=== PATIENT | female | born 2000 | race Caucasian/White ===

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

== ENCOUNTER 2018-01-11 07:55 | Emergency (ER) | payer BC, OTHER ==
[2018-01-11 08:28] VITALS: BP 98/58
--- NOTE | 2018-01-11 10:22 | UC ---
UC General HPI - HPI Summary HPI Summary: 17 yo female c/o sore throat. Current episode started approx Wednesday (today is ). Completed a full course of amoxicillin on Wednesday, the day before symptoms recurred d/t strep throat. No rash. Subj fever. Mild GI discomfort, no diarrhea. Minimal cough. Reports that she had mononucleosis in 6th grade, but does not recall if blood tested or not. No urinary issues. + dm, takes metformin. BS this am 98mg/dl. - History of Current Complaint Chief Complaint: UCGeneralIllness Stated Complaint: ST, FEVER, WEAK Time Seen by Provider: 01/11/18 09:28 Hx Obtained From: Patient Hx Last Menstrual Period: irregular - 3 months ago Pain Intensity: 5 - Allergy/Home Medications Allergies/Adverse Reactions: Allergies Allergy/AdvReac Type Severity Reaction Status Date / Time No Known Allergies Allergy Verified 01/11/18 08:28 Home Medications: Home Medications QUEtiapine TAB* [SEROquel TAB*] 100 mg PO BEDTIME 01/11/18 [History Confirmed ] traZODone TAB* [Desyrel TAB*] 50 mg PO BEDTIME 01/11/18 [History Confirmed 01/11] PMH/Surg Hx/FS Hx/Imm Hx Previously Healthy: Yes - Surgical History Surgical History: None - Family History Known Family History: Negative: Blood Disorder - Social History Alcohol Use: Rare Substance Use Type: None Smoking Status (MU): Never Smoked Tobacco - Immunization History Most Recent Influenza Vaccination: 07/2013 Most Recent Pneumonia Vaccination: never Vaccination Up to Date: Yes Review of Systems Constitutional: Fever Skin: Negative Eyes: Negative ENT: Sore Throat Respiratory: Negative Cardiovascular: Negative Gastrointestinal: Negative Genitourinary: Negative - see hpi Motor: Negative Neurovascular: Negative Musculoskeletal: Negative Neurological: Negative Psychological: Negative Is Patient Immunocompromised?: No All Other Systems Reviewed And Are Negative: Yes Physical Exam Triage Information Reviewed: Yes Appearance: Well-Nourished - sitting up. conversing easily and appropriately. NAD. Vital Signs: Initial Vital Signs Temp 99.2 F 01/11/18 08:22 Pulse 110 01/11/18 08:22 Resp 20 01/11/18 08:22 BP 98/58 01/11/18 08:22 Pulse Ox 98 01/11/18 08:22 Vital Signs Reviewed: Yes Eye Exam: Normal ENT: Positive: Pharyngeal erythema - uvula midline. Airway patent., TM dull, Tonsillar exudate Neck: Positive: Supple, Nontender, Enlarged Nodes @ - mild adenopathy Respiratory Exam: Normal Respiratory: Positive: Chest non-tender, Lungs clear, Normal breath sounds, No respiratory distress, No accessory muscle use Cardiovascular Exam: Normal Cardiovascular: Positive: RRR, No Murmur, Pulses Normal, Brisk Capillary Refill Abdominal Exam: Other - soft + bs, nd. Mild tender no r/g L lat ant abd. Not tender under ribs right or left. No cvat. Musculoskeletal Exam: Normal Neurological Exam: Normal Psychological Exam: Normal - conversing easily and appropriately. Skin Exam: Normal - no visible or reported rash Course/Dx - Course Course Of Treatment: RST negative. D/w pt and family member coa / tx plan. Rx doxycycline, pending mono results. Work note. Blood tests ordered. Questions as posed answered to the best of my ability. - Differential Dx - Multi-Symptom Provider Diagnoses: Tonsillitis Discharge - Sign-Out/Discharge Documenting (check all that apply): Discharge - Discharge Plan Condition: Stable Disposition: HOME Prescriptions: DOXYcycline CAP(*) [DOXYcycline 100MG CAP(*)] 100 mg PO BID #20 cap Patient Education Materials: Tonsillitis (ED) Forms: *Work Release Referrals: Zoila Bell NP [Primary Care Provider] - Additional Instructions: Follow up with your primary care provider as per routine, recommend recheck in the next 1-2 weeks. Drink plenty of fluids. Rest. Seek medical attention for worse or new problems in the meantime. Tests today: Monospot EBV antibodies CBC CMP - Billing Disposition and Condition Condition: STABLE Disposition: HOME
[2018-01-11 20:02] LABS: Hematocrit 38 % (35-47); Hemoglobin 12.9 g/dl (12.0-16.0); Mean Corpuscular HGB Conc 34 g/dl (31-36); Mean Corpuscular Hemoglobin 29 pg (27-31); Mean Corpuscular Volume 85 fL (80-97); Mean Platelet Volume 8.8 um3 (7.4-10.4); Platelet Count 221 10^3/ul (150-450); Red Blood Count 4.46 10^6/ul (4.0-5.4); Red Cell Distribution Width 14 % (10.5-15); White Blood Count 16.9 10^3/ul (3.5-10.8)
[2018-01-11 20:41] LABS: EGFR Non-African American 139.5 (>60)
[2018-01-11 20:57] LABS: ABS Basophils 0.1 10^3/ul (0-0.2); ABS Eosinophils 0.1 10^3/ul (0-0.6); ABS Lymphocytes 1.4 10^3/ul (1.0-4.8); ABS Neutrophils 14.4 10^3/ul (1.5-7.7); ABS Nucleated RBC 0 10^3/ul; Eosinophil % 0.3 % (0-6); Lymphocyte % 8.1 % (25-47); Nucleated Red Blood Cells % 0
--- NOTE | 2018-01-14 07:14 | UC ---
- Progress Note Progress Note: 2+ normal floral throat Nelson: suggest previous +IgG/Ag neg IgM no change Myrna 01/14/2018 Discharge - Sign-Out/Discharge Documenting (check all that apply): Discharge - Discharge Plan Condition: Stable Disposition: HOME Prescriptions: DOXYcycline CAP(*) [DOXYcycline 100MG CAP(*)] 100 mg PO BID #20 cap Patient Education Materials: Tonsillitis (ED) Forms: *Work Release Referrals: Zoila Bell NP [Primary Care Provider] - Additional Instructions: Follow up with your primary care provider as per routine, recommend recheck in the next 1-2 weeks. Drink plenty of fluids. Rest. Seek medical attention for worse or new problems in the meantime. Tests today: Monospot EBV antibodies CBC CMP - Billing Disposition and Condition Condition: STABLE Disposition: HOME
== END 2018-01-11 10:26 | disposition home or self-care (01) ==
LOC: UCCORT 07:55
DX: J03.90 Acute tonsillitis, unspecified (principal); R19.8 Other specified symptoms and signs involving the digestive system and abdomen; E11.9 Type 2 diabetes mellitus without complications; N92.6 Irregular menstruation, unspecified; Z79.84 Long term (current) use of oral hypoglycemic drugs; Z86.19 Personal history of other infectious and parasitic diseases
CPT/HCPCS: 36415; 80053; 85025; 86308; 86664; 86665; 87070; 87651; 99212; G0463

== ENCOUNTER 2018-05-01 23:21 | Inpatient (IN) | payer BC ==
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
[2018-05-02 00:33] LABS: ABS Basophils 0 10^3/ul (0-0.2); ABS Eosinophils 0.2 10^3/ul (0-0.6); ABS Lymphocytes 3.3 10^3/ul (1.0-4.8); ABS Monocytes 0.6 10^3/ul (0-0.8); ABS Neutrophils 4.3 10^3/ul (1.5-7.7); ABS Nucleated RBC 0 10^3/ul; Hematocrit 39 % (35-47); Hemoglobin 13.3 g/dl (12.0-16.0); Lymphocyte % 39.1 % (25-47); Mean Corpuscular HGB Conc 34 g/dl (31-36); Mean Corpuscular Hemoglobin 30 pg (27-31); Mean Corpuscular Volume 86 fL (80-97); Mean Platelet Volume 8.5 um3 (7.4-10.4); Nucleated Red Blood Cells % 0.1; Platelet Count 208 10^3/ul (150-450); Red Blood Count 4.52 10^6/ul (4.00-5.40); Red Cell Distribution Width 14 % (10.5-15); White Blood Count 8.4 10^3/ul (3.5-10.8)
[2018-05-02 00:49] LABS: Urine Appearance Cloudy; Urine Blood Negative (Negative); Urine Color Yellow; Urine Ketones Negative (Negative); Urine Protein 1+(30 mg/dL) (Negative); Urine Red Blood Cell 3+(>10/hpf) (Absent); Urine Specific Gravity 1.029 (1.010-1.030); Urine Urobilinogen Positive (Negative); Urine White Blood Cell Trace(0-5/hpf) (Absent)
[2018-05-02 00:51] LABS: EGFR Non-African American 127.5 (>60)
--- NOTE | 2018-05-02 07:23 | UC ---
- Progress Note Progress Note: The patient was signed out from Dr. Morgan to Dr. Rivas, awaiting MHE. MHE was done at [address] Guerrero. This patient will be admitted by Dr. Guerrero with a dx of depression and suicidal ideation. Patient and mother understand and agree with this plan. - Consult/PCP Time Called: 01:15 Course/Dx - Diagnoses Provider Diagnoses: Depression, Suicidal ideation Discharge - Sign-Out/Discharge Documenting (check all that apply): Patient Departure - Discharge Plan Condition: Fair Disposition: ADMITTED TO [facility] - Billing Disposition and Condition Condition: FAIR Disposition: Admitted to [facility]
[2018-05-02] MEDS ORDERED: Levothyroxine TAB* 25 MCG TAB PO ONE (12:01)
[2018-05-02] MEDS ORDERED: metFORMIN* 500 MG TAB PO ONE (12:01)
[2018-05-02] MEDS ORDERED: Al Hydrox/Mg Hydrox/Simet LIQ* 30 ML UDC PO PRN (12:30)
[2018-05-02] MEDS ORDERED: hydrOXYzine HCL TAB* 50 MG PO PRN (12:32)
[2018-05-02] MEDS ORDERED: Ondansetron ODT TAB* 4 MG PO PRN (12:32)
[2018-05-02] MEDS ORDERED: Ibuprofen TAB* 600 MG PO PRN (12:32)
[2018-05-02] MEDS: Levothyroxine TAB* 50 MCG TAB PO SCH (16:44)
[2018-05-02] MEDS: metFORMIN* 1,000 MG TAB PO SCH (17:57)
[2018-05-02] MEDS ORDERED: Sertraline* 100 MG TAB PO SCH (21:00)
[2018-05-02] MEDS ORDERED: QUEtiapine TAB* 100 MG PO SCH (21:00)
[2018-05-02] MEDS: Acetaminophen TAB* 325 MG PO PRN (21:43)
[2018-05-02] MEDS: PTO: Liraglutide (NF) 18 MG/3 ML SUBCUT SCH (22:23)
[2018-05-03] MEDS: metFORMIN* 1,000 MG TAB PO SCH ×2 (08:32→17:17)
[2018-05-03] MEDS: Levothyroxine TAB* 75 MCG TAB SCH (08:32)
[2018-05-03] MEDS ORDERED: LEVONORGESTREL PO ONE (12:01)
[2018-05-03] MEDS ORDERED: ETHINYL ESTRADIOL PO ONE (12:01)
[2018-05-03] MEDS: LEVONORGESTREL ETH ESTRAD PO SCH (14:56)
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
[2018-05-03] MEDS: QUEtiapine XR TAB* 200 MG PO SCH (17:17)
[2018-05-03] MEDS: PTO: Liraglutide (NF) 18 MG/3 ML SUBCUT SCH (20:57)
[2018-05-03] MEDS: Sertraline* 100 MG TAB PO SCH (21:01)
[2018-05-04] MEDS: Levothyroxine TAB* 50 MCG TAB PO SCH (09:13)
[2018-05-04] MEDS: metFORMIN* 1,000 MG TAB PO SCH ×2 (09:14→17:33)
[2018-05-04] MEDS: LEVONORGESTREL ETH ESTRAD PO SCH (09:14)
[2018-05-04] MEDS: Acetaminophen TAB* 325 MG PO PRN (11:10)
--- NOTE | 2018-05-04 12:05 | PN ---
Subjective - Subjective Date of Service: 05/04/18 Service Type: [id number] Hosp care 15 min low complexity Subjective: Patient was seen by self, discussed with treatment team, chart was reviewed. Patient has been compliant with her medications, no reported side effects. Patient reports improvement in her sleep last night, and racing worries, but continued to be depressed, low in energy, low self esteem, ambivalent about improvement and feeling better as she is afraid to lose that feeling. Patient mentioned that she has had noticed with psychoeducation on the unit that she has some traits of borderline features and wants to work on her coping strategies to help regulate her cognition and emotions better. Patient sleeping has been better. Patient eating has been fair. Patient has been cooperative with staff. Patient behavior has been in control. Patient mood was less anxious but continued to be dysphoric and reports some improvement in racing worries. Patient has been reporting no suicidal or homicidal ideation. No psychotic symptoms of delusions or hallucinations. Objective - Appearance Appearance: Healthy Appearing Dysmorphic Features: No Hygiene: Normal Grooming: Fairly Well Kept - Behavior Psychomotor Activities: Abnormal-Decreased - some improvement - Attitude and Relatedness Attitude and Relatedness: Cooperative Eye Contact: Fair - Speech Quality: Unpressured Latencies: Normal Quantity: Terse - Mood Patient's Decription of Mood: "Okay" - Affect Observed Affect: Depressed Affect Consistent with: Dysphoria - Thought Process Patient's Thought Process: Goal Directed Thought Content: No Passive Wish, No Suicidal Planning, No Homicidal Ideation, No Paranoid Ideation - Sensorium Experiencing Hallucinations: No, Sensorium is Clear Type of Hallucinations: Visual: No, Auditory: No, Command: No - Level of Consciousness Level of Consciousness: Alert Orientation: Yes Intact, Yes Orientated to Time, Yes Orientated to Place, Yes Orientated to Person - Impulse Control Impulse Control: Intact - Insight and Judgement Insight and Judgement: Fair - Group Participation Particating in Group Activities: Yes - Medication Management Medication Management Adherence: Yes Assessment - Assessment Merits Inpatient Hospitalization: For Immediate Safety, For Stabilization, For Discharge Planning Inpatient DSM-V Dx: F33.9 Clinical Impression: Patient with history of depressive disorder and anxiety disorder. Patient currently admitted due to worsening of depression, anxiety and suicidal thoughts with plan. Patient has also been struggling with her recent break up with boyfriend and self blaming herself and unstable to regulate her thinking and emotions attached to it. Patient is a danger to self if discharged hence medications are being adjusted with therapy and symptoms will be stabilized on inpatient. Plan - Plan Treatment Plan: Name: TANYA PEREZ Birthdate: 2000 [id number] - Patient continues to be hospitalized due to recent suicidal thoughts with plan , mood instability and anxiety. - Patient's medications were adjusted after informed consent with continuation of Seroquel XR at 200mg QHS and Zoloft at 150 mg QHS. - Patient will be continued with her current medical medications as well. - Patient will be monitored for improvement and side effects. Risk and benefits were discussed. - Patient was encouraged to continue his participation in the milieu, group and individual therapy. Medications: Current Medications Acetaminophen (Tylenol Tab*) 650 mg PO Q4H PRN PRN Reason: for pain; or Temp >101 F Last Admin: 05/04/18 11:10 Dose: 650 mg Al Hydrox/Mg Hydrox/Simethicone (Maalox Plus*) 30 ml PO Q4H PRN PRN Reason: INDIGESTION Hydroxyzine HCl (Atarax Tab*) 50 mg PO Q6H PRN PRN Reason: ANXIETY Ibuprofen (Motrin Tab*) 600 mg PO Q6H PRN PRN Reason: PAIN Levonorgestrel (Quasense (Nf)) 1 tab PO DAILY [facility] Last Admin: 05/04/18 09:14 Dose: 1 tab Levothyroxine Sodium (Synthroid Tab*) 50 mcg PO EVERY OTHER DAY@0600 [facility] Last Admin: 05/04/18 09:13 Dose: 50 mcg Levothyroxine Sodium (Synthroid Tab*) 75 mcg .SEE ORDER EVERY OTHER DAY@0600 [facility] Last Admin: 05/03/18 08:32 Dose: 75 mcg Liraglutide (Victoza (Nf)) 1.8 mg SUBCUT 2100 [facility] Last Admin: 05/03/18 20:57 Dose: 1.8 mg Metformin HCl (Glucophage*) 1,000 mg PO 0800,1700 [facility] Last Admin: 05/04/18 09:14 Dose: 1,000 mg Ondansetron HCl (Zofran Odt Tab*) 4 mg PO Q6H PRN PRN Reason: NAUSEA Quetiapine Fumarate (Seroquel Xr Tab*) 200 mg PO 1800 [facility] Last Admin: 05/03/18 17:17 Dose: 200 mg Sertraline HCl (Zoloft*) 150 mg PO 2100 [facility] Last Admin: 05/03/18 21:01 Dose: 150 mg
[2018-05-04] MEDS: QUEtiapine XR TAB* 200 MG PO SCH (19:08)
[2018-05-04] MEDS: Sertraline* 100 MG TAB PO SCH (21:08)
[2018-05-04] MEDS: PTO: Liraglutide (NF) 18 MG/3 ML SUBCUT SCH (21:10)
[2018-05-05] MEDS: metFORMIN* 1,000 MG TAB PO SCH ×2 (08:50→17:51)
[2018-05-05] MEDS: Levothyroxine TAB* 75 MCG TAB SCH (08:50)
[2018-05-05] MEDS: LEVONORGESTREL ETH ESTRAD PO SCH (08:50)
--- NOTE | 2018-05-05 11:37 | PN ---
MHU: Group Therapy Note - Service Type Service Type: 35240 Group Psychotherapy - Cognitive Behavioral Group Therapy ( CBT):Patient was attentive and participatory in CBT programming this morning, and remained in good behavioral control. Patient expressed positive insights regarding relevant treatment interventions and goals.
--- NOTE | 2018-05-05 12:14 | PN ---
Subjective - Subjective Date of Service: 05/05/18 Service Type: [id number] [facility] care 15 min low complexity Subjective: Patient was seen by self, discussed with treatment team, chart was reviewed. Patient has been compliant with her medications, no reported side effects. Patient reports improvement in her sleep last night but took Seroquel later at around 7:00 pm and felt comfortable with that. Patient continues to report racing thoughts and worries when she is by herself and when she was trying to go to bed. Patient showing improvement in her sleep but continued to be depressed with some improvement, low in energy, low self esteem, wants to feel happy and not rejecting help. Patient mentioned that she has been working in learning mindfulness techniques and other coping strategies to help regulate her cognition and emotions better. Patient sleeping has been better. Patient eating has been fair. Patient has been cooperative with staff. Patient behavior has been in control. Patient has been reporting no suicidal or homicidal ideation. No psychotic symptoms of delusions or hallucinations. Objective - Appearance Appearance: Healthy Appearing Dysmorphic Features: No Hygiene: Normal Grooming: Fairly Well Kept - Behavior Psychomotor Activities: Normal Exhibits Abnormal Movement: No - Attitude and Relatedness Attitude and Relatedness: Cooperative Eye Contact: Fair - Speech Quality: Unpressured Latencies: Normal Quantity: Appropriate - Mood Patient's Decription of Mood: "better" - Affect Observed Affect: Depressed Affect Consistent with: Dysphoria - Thought Process Patient's Thought Process: Goal Directed Thought Content: No Passive Wish, No Suicidal Planning, No Homicidal Ideation, No Paranoid Ideation - Sensorium Experiencing Hallucinations: No, Sensorium is Clear Type of Hallucinations: Visual: No, Auditory: No, Command: No - Level of Consciousness Level of Consciousness: Alert Orientation: Yes Intact, Yes Orientated to Time, Yes Orientated to Place, Yes Orientated to Person - Impulse Control Impulse Control: Intact - Insight and Judgement Insight and Judgement: Fair - Group Participation Particating in Group Activities: Yes - Medication Management Medication Management Adherence: Yes Assessment - Assessment Merits Inpatient Hospitalization: For Immediate Safety, For Stabilization, For Discharge Planning Inpatient DSM-V Dx: F33.9 Clinical Impression: Patient with history of depressive disorder and anxiety disorder. Patient currently admitted due to worsening of depression, anxiety and suicidal thoughts with plan. Patient has also been struggling with her recent break up with boyfriend and self blaming herself and unstable to regulate her thinking and emotions attached to it. Patient is a danger to self if discharged hence medications are being adjusted with therapy and symptoms will be stabilized on inpatient. Plan - Plan Treatment Plan: Name: TANYA PEREZ Birthdate: 2000 [id number] - Patient continues to be hospitalized due to recent suicidal thoughts with plan , mood instability and anxiety. - Patient's medications were adjusted after informed consent with increment of Seroquel XR to 250mg Q7PM and Zoloft continued at 150 mg QHS. - Patient will be continued with her current medical medications as well. - Patient will be monitored for improvement and side effects. Risk and benefits were discussed. - Patient was encouraged to continue his participation in the milieu, group and individual therapy. Medications: Current Medications Acetaminophen (Tylenol Tab*) 650 mg PO Q4H PRN PRN Reason: for pain; or Temp >101 F Last Admin: 05/04/18 11:10 Dose: 650 mg Al Hydrox/Mg Hydrox/Simethicone (Maalox Plus*) 30 ml PO Q4H PRN PRN Reason: INDIGESTION Hydroxyzine HCl (Atarax Tab*) 50 mg PO Q6H PRN PRN Reason: ANXIETY Ibuprofen (Motrin Tab*) 600 mg PO Q6H PRN PRN Reason: PAIN Levonorgestrel (Quasense (Nf)) 1 tab PO DAILY [facility] Last Admin: 05/05/18 08:50 Dose: 1 tab Levothyroxine Sodium (Synthroid Tab*) 50 mcg PO EVERY OTHER DAY@0600 [facility] Last Admin: 05/04/18 09:13 Dose: 50 mcg Levothyroxine Sodium (Synthroid Tab*) 75 mcg .SEE ORDER EVERY OTHER DAY@0600 [facility] Last Admin: 05/05/18 08:50 Dose: 75 mcg Liraglutide (Victoza (Nf)) 1.8 mg SUBCUT 2100 [facility] Last Admin: 05/04/18 21:10 Dose: 1.8 mg Metformin HCl (Glucophage*) 1,000 mg PO 0800,1700 [facility] Last Admin: 05/05/18 08:50 Dose: 1,000 mg Ondansetron HCl (Zofran Odt Tab*) 4 mg PO Q6H PRN PRN Reason: NAUSEA Quetiapine Fumarate (Seroquel Xr Tab*) 200 mg PO 1900 [facility] Quetiapine Fumarate (Seroquel Xr Tab*) 50 mg PO 1900 [facility] Sertraline HCl (Zoloft*) 150 mg PO 2100 [facility] Last Admin: 05/04/18 21:08 Dose: 150 mg
--- NOTE | 2018-05-05 16:19 | PN ---
MHU: Group Therapy Note - Service Type Service Type: [id number] Group Psychotherapy - Medication Education Group: Patient was attentive and participatory in group, and remained in good behavioral control. Patient expressed positive insights regarding relevant treatment interventions. Patient stated understanding of material discussed and had appropriate questions.
[2018-05-05] MEDS ORDERED: QUEtiapine XR TAB* 50 MG PO SCH (19:00)
[2018-05-05] MEDS ORDERED: QUEtiapine XR TAB* 200 MG PO SCH (19:00)
[2018-05-05] MEDS: Sertraline* 100 MG TAB PO SCH (20:14)
[2018-05-05] MEDS: PTO: Liraglutide (NF) 18 MG/3 ML SUBCUT SCH (20:17)
[2018-05-06 08:05] VITALS: BP 109/65
[2018-05-06] MEDS: Levothyroxine TAB* 50 MCG TAB PO SCH (08:48)
[2018-05-06] MEDS: LEVONORGESTREL ETH ESTRAD PO SCH (08:48)
[2018-05-06] MEDS: metFORMIN* 1,000 MG TAB PO SCH (08:48)
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
--- NOTE | 2018-05-06 19:11 | CONS ---
PSYCHOLOGICAL REPORT: DATE OF CONSULT: 05/05/18 REASON FOR REFERRAL: Danette was referred for personality testing secondary to concerns regarding possible lethality as well as contributing to discussion of diagnostic impression with some historical references to a bipolar disorder. TEST ADMINISTERED: Danette completed the [place] Multiphasic Personality Inventory - 2 (MMPI-2), and was given feedback in individual conversation. She was also seen by this caption writer in the context of cognitive behavioral group psychotherapy throughout her admission. RELEVANT HISTORY: This is Danette's second admission to this facility with her first occurring on the adult unit a few years ago. Presently, Danette describes productive experience and expressed relief regarding suicidal rumination and depressive symptomatology. Danette describes struggling with encroaching depression in the past months that was worsened after a boyfriend had broken up with her a few weeks prior to her admission. She had described having thoughts about trying to drive her car into a tree, but was able to stop herself from carrying this through to completion. 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 She clearly values her work and finds her efforts to be interesting and productive. She lives at home with her mother and stepfather, describing rather estranged relationship with her biological father who lives in the [facility]. She described hoping to have more support from her father, but describes a rather interesting and colorful history. Her biological father apparently has had 5 children by 5 different mothers including a step sister whom she describes being close to, who has only been 6 months younger than she. Danette describes good adjustment at home with her mother and stepfather whom describes as being emotionally supportive. Danette describes historical difficulties in the educational context having been diagnosed with learning disabilities and attention deficit hyperactivity disorder. She describes an interest in taking the vocational test in the coming weeks, but appears to be disinclined to pursue further formal education. She does describe good work adjustment presently, and is anxious to return to work in a timely fashion. BEHAVIORAL OBSERVATIONS: Danette has been compliant with recommended medications and unit routine, consistently attending programming and engaging in a productive fashion. She is spontaneous in speech and individual conversation and expresses prosocial future narrative. She is disappointed and dysphoric in discussion about her relationship with her boyfriend and describes feeling embarrassed by her reaction to this as although they had been friends a longtime, but only dating each other for a period of a few months. She appears to be accepting of this loss and relational status well at this point in time and denies ongoing thoughts of suicide. TEST RESULTS: Danette provides a valid response set on this administration of the MMPI-2 having a high-point score on the Fb scale of T = 63. This did not attain an elevated status. Clinical indices reflect mild difficulties currently with depression and anxiety with T-scores reaching levels of 67 and 75 respectively. She also has a minor elevation on the paranoia scale, which is indicative of a person who is rather sensitive to perceptions of criticism. This was framed to Danette as a positive attitude, but that she may struggle with this in the context of a recent breakup. IMPRESSIONS AND RECOMMENDATIONS: Danette impresses as a likely candidate to comply with recommended outpatient treatments including compliance with medication. Ongoing treatment should address ego strength as an important factor as her difficulties in academics as well as her recent romantic disappointment seems to have compromised her sense of self confidence to some degree. Clinical interventions in group context while here addressed characterological issues regarding passion and persistence, which are called from a book entitled Grit by Julienne Will. Of note, Danette scored in the 20th percentile on her scale addressing these ideas meaning that she needs to find some direction in terms of what she is passionate about and what she cares to develop discipline about. DIAGNOSTIC IMPRESSION: Supports major depressive disorder, recurrent, severe without psychotic symptoms. Neither her presentation nor testing reflects her difficulties with the bipolar disorder. [id number] #: [id number] [email or web address]
== END 2018-05-06 13:30 | disposition home or self-care (01) | DRG 751 ==
LOC: ED 23:21 → BSU 05-02 14:07
PROVIDERS: ADMIT Psychiatry & Neurology Psychiatry; ATTEND Psychiatry & Neurology Psychiatry
PROC: GZHZZZZ Group Psychotherapy (ICD-10-PCS; principal; 2018-05-02)
DX: F33.2 Major depressive disorder, recurrent severe without psychotic features (principal); R45.851 Suicidal ideations; F41.9 Anxiety disorder, unspecified; J45.990 Exercise induced bronchospasm; F81.9 Developmental disorder of scholastic skills, unspecified; F90.9 Attention-deficit hyperactivity disorder, unspecified type; E03.9 Hypothyroidism, unspecified; R73.03 Prediabetes; F32.81 Premenstrual dysphoric disorder; Z81.8 Family history of other mental and behavioral disorders; Z81.1 Family history of alcohol abuse and dependence; Z72.89 Other problems related to lifestyle; Z79.84 Long term (current) use of oral hypoglycemic drugs
CPT/HCPCS: 36415; 80053; 80061; 80307; 80320; 80329; 81003; 81015; 83036; 84443; 84702; 85025; 87086; 90853; 96102; 99222; 99231; 99238; 99283; A9270-GY; G0480

== ENCOUNTER 2018-06-29 15:43 | Emergency (ER) | payer BC ==
--- OUTSIDE RECORDS SUMMARY | 2018-06-29 16:56 | XMS REPORT ---
:1998 External Reference #:[id number] Author Organization [facility] Address [address] [address] Phone [phone] Care Team Providers Name Role Phone Zoila Bell N.P. Care Team Information Train Brakeman Unavailable Payers Type Date Identification Numbers Payment Provider Subscriber Commercial Effective: Policy Number: BCBS Ppo Awa Anneliese 2017 [id number] PayID: [id number] [address] [address] [place] [address] Medigap Part B Policy Number: [address] [place] [address] Danette Carver PayID: [id number] [address] [place] [address] Workers Compensation Effective: Policy Number: Ayad Carver 2017 [id number] Onset: 2017 PayID: [id number] [address] [address] [place] [address] Workers Compensation Effective: Policy Number: Valerie Samaniego 2018 [id number] [employer] [place] Onset: 2018 PayID: [id number] [facility] [address] [place] [address] Problems Date Description Provider Status Onset: 11/27/2014 Hypothyroidism Zoila Bell, N.P. Active Onset: 11/27/2014 Depressive disorder Zoila Bell, N.P. Active Onset: 08/26/2016 Polycystic ovaries Zoila Bell, N.P. Active Onset: 07/15/2017 Anxiety Zoila Bell, N.P. Active Onset: 01/14/2018 Mood disorder Zoila Bell, N.PMora Active Family History Date Family Member(s) Problem(s) Comments Father Depression Mother Hypertension Mother chronic gi bleed First Brother Good Health Paternal Grandmother Breast Cancer Social History Type Date Description Comments Education Highest level completed, 12th grade Occupation Currently Working [employer] Smoking Patient has never smoked Allergies, Adverse Reactions, Alerts Date Description Reaction Status Severity Comments 12/05/2013 NKDA active Medications Medication Date Status Form Strength Qnty SIG Indications Ordering Provider Work Note 04/26 Active no work 04/25/18- Zoila, 8 for medical N.P. reasons. May return to full duty work 05/02/18 Trazodone HCL 01/14 Active Tablets 50mg 60tab take 1 s tablets by Mashelle, mouth at N.P. bedtime Aviane 02/15 Active Tablets 0.1-20mg- 28tab Take 1 Tablet mcg s By Mouth Once Mashelle, Daily N.P. Proair HFA 08/06 Active Aerosol 108(90Bas 1unit 2 puffs four e) s times a day Mashelle, mcg/Act as needed N.P. Sertraline HCL 06/20 Active Tablets 100mg 45tab Take One & s One-Half Mashelle, Tablets By N.P. Mouth AT Bedtime Metformin HCL Active Tablets 500mg take two tablets by Mashelle, mouth bid N.P. Victoza Active Solution 18mg/3ML 1.8ml qd Pen-Injec t Synthroid Active Tablets 75mcg 1 po qd Quetiapine Active Tablets 100mg 2 po q hs Unknown Fumarate Methylphenidate Active Tablets 10mg Unknown HCL / Trazadone 01/14 Hx Zoila, - N.P. 01/14 Medical Note 10/15 Hx may return to unrestricted Zoila, - work 10/18/17 N.P. 01/14 Mupirocin 07/15 Hx Ointment 2% 22gm apply to affcted area Zoila, - twice a day N.P. 08/12 Hydroxyzine HCL 07/15 Hx Tablets 25mg 60tab Take One To s Two Tablets Joryle, - By Mouth N.P. 01/14 Three Times Daily as Needed Omeprazole 06/03 Hx Capsules 20mg 30cap [address] [facility] 01/14 Bupropion HCL ER 05/17 Hx Tablets 150mg 30tab take one Ray, () ER 24HR s tablet by Zoila, - mouth every N.P. 05/27 Medical Note 10/12 Hx may return to [facility] school and [facility], - all N.P. 05/17 activities 10/13/16 Methylphenidate 07/13 Hx Tablets 20mg 30tab 1 po q am [place], HCL ER s [facility], - N.P. 11/26 School Note 02/19 Hx may not attend [facility] classes today N.P. 08/26 for reasons Ritalin 12/30 Hx Tablets 10mg 30tab 1 po qd at s lunch in [facility], - school N.P. 12/30 Fluocinonide 10/24 Hx Cream 0.05% 30gm apply sparingly to [facility], - itchy rash N.P. 05/21 three times a day Medical Note 10/07 Hx patient [address] currently [facility], - being treated N.P. 04/07 with medication for generalized anxiety disorder Methylphenidate 08/06 Hx Tablets 27mg 30tab 1 by mouth Ray, HCL ER 24HR s every in the [facility], - morning N.P. 07/13 Medical Note 06/21 Hx patient may self-medicate [facility], - with ritalin N.P. 05/17 mid-afternoon during school days Ritalin 05/09 Hx Tablets 10mg 90tab 1 by mouth s three times a [facility], - day N.P. 11/26 Ritalin 03/28 Hx Tablets 20mg 30tab 1 po q am s Zoila, - N.P. 05/09 Meclizine HCL 02/28 Hx Tablets 25mg 24tab 1 by mouth Ray, s three times a [facility], - day for N.P. 06/20 Methylphenidate 02/28 Hx Capsules 20mg 30cap 1 by mouth Ray, HCL ER (CD) ER s every in the [facility], - morning N.P. 08/06 School Note 02/28 Hx no school today for [facility], - medical N.P. 03/19 Methylphenidate 02/14 Hx Capsules 30mg 30cap 1 by mouth [place], HCL ER (CD) ER s qam [facility], - N.P. 02/28 Methylphenidate 02/11 Hx Capsules 10mg 60cap 2 by mouth [place], HCL ER (CD) ER s every [facility], - morning N.P. 02/11 Methylphenidate 02/11 Hx Capsules 20mg 30cap 1 po q am [place], HCL ER (CD) ER s [facility], - N.P. 02/14 Methylphenidate 01/22 Hx Capsules 10mg 30cap 1 by mouth [place], HCL ER (CD) ER s every in the [facility], - morning N.P. 02/11 Ritalin 01/22 Hx Tablets 10mg 60tab 1 by mouth , s twice a day [facility], - N.P. 03/28 Synthroid 11/27 Hx Tablets 50mcg 30tab take one s tablet by [facility], - mouth once a N.P. 05/17 day on stomach Synthroid 10/02 Hx Tablets 25mcg 30tab 1 by mouth [place], s every day on [facility], - empty stomach N.P. 11/27 Sertraline HCL 08/31 Hx Tablets 100mg 30tab 1 by mouth [place], [facility] 06/20 Sertraline HCL 05/23 Hx Tablets 50mg 30tab 1 by mouth Ray, s every day Zoila, - N.P. 08/31 Zinc Oxide 04/19 Hx Ointment 40% Zoila, - N.P. 05/21 Lotrisone 03/06 Hx Cream 1-0.05% 45gm apply three times a day Timmy Cummings to affected N.P. 04/19 Proair HFA 12/05 Hx Aerosol 108(90Bas 1unit 2 puffs qid [place] e) s prn Zoila, - mcg/Act N.P. 05/23 Hydroxyzine 12/05 Hx Capsules 25mg 30cap 1-2 q 6h prn Ray, Pamoate s anxiety Zoila, - N.P. 05/23 Melatonin 12/05 Hx Capsules 1mg [place] Zoila, - N.P. 08/12 Minastrin 24 12/05 Hx Chewtabs 1-20mg-mc 1 po qd g(24) Zoila, - N.P. 08/26 Medications Administered in Office Medication Date Status Form Strength Qnty SIG Indications Ordering Provider PPD Administered Injection Ray, 4 [place], N.P. Immunizations CPT Code Status Date Vaccine Lot # [id number] Given 06/28/2017 Influenza Vac, 3 Yrs & Older, Quadrivalent, Split, [id number] Im Use 82487 Given 05/21/2016 Menactra/Menveo Meningococcal Vaccine [id number] 66214 Given 06/20/2015 Influenza Vac, 3 Yrs & Older, Quadrivalent, Split, [id number] Im Use Q2038 Given 05/20/2011 Fluzone Trivalent Immunization 26780 Given 01/28/2011 HPV Vaccine (Gardasil) 3 Dose Schedule 17467 Given 09/08/2010 HPV Vaccine (Gardasil) 3 Dose Schedule 94844 Given 05/22/2010 HPV Vaccine (Gardasil) 3 Dose Schedule Q2038 Given 07/11/2009 Fluzone Trivalent Immunization 51388 Given 05/22/2009 Meningococcal Immunization 77561 Given 05/22/2009 Tdap (Adacel) Ages 7 And Above Only Q2038 Given 08/16/2008 Fluzone Trivalent Immunization 00606 Given 05/17/2008 Varicella (Chicken Pox) Immunization 34941 Given 06/15/2007 Hepatitis A, Ped/Adolescent 2 Dose Schedule Q2038 Given 06/15/2007 Fluzone Trivalent Immunization 51282 Given 05/07/2006 Hepatitis A, Ped/Adolescent 2 Dose Schedule 27667 Given 07/22/2004 Afluria Or Fluvirin Flu Vac Intramuscular 15080 Given 08/30/2003 Influenza Vaccine Preservative Free 6-35 Months Of Age 31484 Given 07/20/2003 Influenza Vaccine Preservative Free 6-35 Months Of Age 69300 Given 05/04/2003 MMR Virus Immunization 79581 Given 03/02/2003 IPV / Poliomyelitis Immunization 48588 Given 03/02/2003 DTP Immunization 45879 Given 09/12/1999 Varicella (Chicken Pox) Immunization 14050 Given 09/12/1999 DTP Immunization 86230 Given 09/12/1999 Hib HbOC Conjugate 4 Dose Schedule 67464 Given 04/24/1999 MMR Virus Immunization 91113 Given 1998 Hepatitis B Vac Ped/Adolescent 3 Dose Schedule 46426 Given 1998 IPV / Poliomyelitis Immunization 77792 Given 1998 DTP Immunization 40471 Given 1998 Hib HbOC Conjugate 4 Dose Schedule 53157 Given 1998 Hepatitis B Vac Ped/Adolescent 3 Dose Schedule 90436 Given 1998 DTP Immunization 24705 Given 1998 Hib HbOC Conjugate 4 Dose Schedule 05244 Given 1998 IPV / Poliomyelitis Immunization 69104 Given 1998 Hepatitis B Vac Ped/Adolescent 3 Dose Schedule 70815 Given 1998 IPV / Poliomyelitis Immunization 71981 Given 1998 DTP Immunization 06235 Given 1998 Hib HbOC Conjugate 4 Dose Schedule 00353 Refused 10/15/2017 Influenza Vac, 3 Yrs & Older, Quadrivalent, Split, Im Use Vital Signs Date Vital Result Comment 06/21/2018 Body Temperature 97.7 F Weight 152.25 lb Heart Rate 78 /min BP Systolic 105 mmHg BP Diastolic 69 mmHg O2 % BldC Oximetry 97 % 06/10/2018 Body Temperature 98.6 F Weight 152.00 lb Heart Rate 74 /min BP Systolic 107 mmHg BP Diastolic 73 mmHg O2 % BldC Oximetry 98 % 04/26/2018 Body Temperature 98.1 F Weight 147.50 lb Heart Rate 82 /min BP Systolic 106 mmHg BP Diastolic 69 mmHg O2 % BldC Oximetry 98 % 01/14/2018 Body Temperature 98.1 F Weight 145.25 lb Weight Percentile 75th Heart Rate 70 /min BP Systolic 97 mmHg BP Diastolic 63 mmHg O2 % BldC Oximetry 98 % 10/15/2017 Body Temperature 98.2 F Weight 151.25 lb Weight Percentile 82nd Heart Rate 81 /min BP Systolic 118 mmHg BP Diastolic 79 mmHg O2 % BldC Oximetry 98 % 08/12/2017 Body Temperature 97.9 F Weight 158.00 lb Weight Percentile 87th Heart Rate 91 /min BP Systolic 104 mmHg BP Diastolic 68 mmHg O2 % BldC Oximetry 98 % 07/15/2017 Body Temperature 97.7 F Weight 158.38 lb Weight Percentile 87th Heart Rate 86 /min BP Systolic 109 mmHg BP Diastolic 75 mmHg O2 % BldC Oximetry 98 % 06/28/2017 Body Temperature 97.7 F Weight 165.00 lb Weight Percentile 90th Heart Rate 75 /min BP Systolic 102 mmHg BP Diastolic 71 mmHg O2 % BldC Oximetry 99 % 06/03/2017 Body Temperature 97.7 F Weight 167.25 lb Weight Percentile <3rd Heart Rate 85 /min BP Systolic 98 mmHg BP Diastolic 67 mmHg O2 % BldC Oximetry 97 % 05/27/2017 Body Temperature 97.5 F Weight 168.00 lb Weight Percentile <3rd Heart Rate 84 /min BP Systolic 107 mmHg BP Diastolic 69 mmHg O2 % BldC Oximetry 98 % 05/17/2017 Body Temperature 98.6 F Weight 170.12 lb Weight Percentile <3rd Heart Rate 84 /min BP Systolic 110 mmHg BP Diastolic 73 mmHg O2 % BldC Oximetry 98 % 02/15/2017 Body Temperature 97.6 F Weight 195.25 lb Weight Percentile 97th Heart Rate 77 /min BP Systolic 120 mmHg BP Diastolic 70 mmHg O2 % BldC Oximetry 98 % 11/26/2016 Body Temperature 97.7 F Weight 204.00 lb Weight Percentile >97th Heart Rate 82 /min BP Systolic 110 mmHg BP Diastolic 80 mmHg O2 % BldC Oximetry 97 % 10/12/2016 Body Temperature 96.8 F Weight 201.12 lb Weight Percentile >97th Heart Rate 85 /min BP Systolic 123 mmHg BP Diastolic 67 mmHg O2 % BldC Oximetry 96 % 08/26/2016 Body Temperature 97.9 F Weight 201.00 lb Weight Percentile >97th Heart Rate 99 /min BP Systolic 130 mmHg BP Diastolic 80 mmHg O2 % BldC Oximetry 98 % 05/28/2016 Body Temperature 97.7 F Weight 200.12 lb Weight Percentile >97th Heart Rate 90 /min BP Systolic 123 mmHg BP Diastolic 70 mmHg O2 % BldC Oximetry 97 % 05/21/2016 Body Temperature 97.9 F Weight 196.50 lb Weight Percentile 97th Heart Rate 75 /min BP Systolic 122 mmHg BP Diastolic 75 mmHg 04/07/2016 Body Temperature 97.5 F Weight 193.38 lb Weight Percentile 97th Heart Rate 85 /min BP Systolic 110 mmHg BP Diastolic 70 mmHg O2 % BldC Oximetry 97 % 02/20/2016 Body Temperature 98.1 F Weight 187.00 lb Weight Percentile 96th Heart Rate 79 /min BP Systolic 125 mmHg BP Diastolic 74 mmHg O2 % BldC Oximetry 98 % 12/31/2015 Body Temperature 97.7 F Weight 187.50 lb Weight Percentile 97th Heart Rate 84 /min BP Systolic 130 mmHg BP Diastolic 75 mmHg O2 % BldC Oximetry 98 % 10/24/2015 Body Temperature 97.5 F Weight 188.50 lb Weight Percentile 97th Heart Rate 76 /min BP Systolic 127 mmHg BP Diastolic 74 mmHg O2 % BldC Oximetry 98 % 09/18/2015 Body Temperature 98.6 F Weight 188.25 lb Weight Percentile 97th Heart Rate 87 /min BP Systolic 129 mmHg BP Diastolic 69 mmHg O2 % BldC Oximetry 98 % 08/06/2015 Body Temperature 97.7 F Weight 185.12 lb Weight Percentile 96th Heart Rate 72 /min BP Systolic 126 mmHg BP Diastolic 78 mmHg O2 % BldC Oximetry 98 % 06/20/2015 Body Temperature 98.1 F Weight 185.00 lb Weight Percentile 96th Heart Rate 99 /min BP Systolic 120 mmHg BP Diastolic 78 mmHg O2 % BldC Oximetry 97 % 05/09/2015 Body Temperature 97.7 F Weight 186.12 lb Weight Percentile 97th Heart Rate 83 /min BP Systolic 137 mmHg BP Diastolic 80 mmHg 04/04/2015 Weight 182.50 lb Weight Percentile 96th Heart Rate 73 /min BP Systolic 134 mmHg BP Diastolic 82 mmHg Height 63 inches 5'3" Height Percentile 33 % BMI (Body Mass Index) 32.3 kg/m2 Body Mass Index Percentile 97 % 04/04/2015 Body Temperature 98.1 F Weight 182.50 lb Weight Percentile 96th Heart Rate 73 /min BP Systolic 134 mmHg BP Diastolic 82 mmHg O2 % BldC Oximetry 97 % 03/19/2015 Body Temperature 97.7 F Weight 180.00 lb Weight Percentile 96th Heart Rate 86 /min BP Systolic 132 mmHg BP Diastolic 78 mmHg O2 % BldC Oximetry 99 % 02/28/2015 Body Temperature 97.9 F Weight 179.00 lb Weight Percentile 96th Heart Rate 84 /min BP Systolic 130 mmHg BP Diastolic 82 mmHg O2 % BldC Oximetry 98 % 02/19/2015 Body Temperature 97.7 F Weight 177.38 lb Weight Percentile 95th Heart Rate 93 /min BP Systolic 137 mmHg BP Diastolic 91 mmHg O2 % BldC Oximetry 97 % 02/14/2015 Body Temperature 98.1 F Weight 181.12 lb Weight Percentile 96th Heart Rate 96 /min BP Systolic 124 mmHg BP Diastolic 66 mmHg O2 % BldC Oximetry 96 % 01/31/2015 Body Temperature 98.2 F Weight 182.00 lb Weight Percentile 96th Heart Rate 84 /min BP Systolic 121 mmHg BP Diastolic 74 mmHg O2 % BldC Oximetry 98 % 01/22/2015 Body Temperature 98.6 F Weight 187.00 lb Weight Percentile 97th Heart Rate 73 /min BP Systolic 134 mmHg BP Diastolic 80 mmHg Height 63 inches 5'3" Height Percentile 33 % BMI (Body Mass Index) 33.1 kg/m2 Body Mass Index Percentile 98 % 12/18/2014 Weight 186.50 lb Weight Percentile 97th Heart Rate 79 /min BP Systolic 125 mmHg BP Diastolic 79 mmHg O2 % BldC Oximetry 98 % 11/27/2014 Weight 186.12 lb Weight Percentile 97th Heart Rate 81 /min BP Systolic 130 mmHg BP Diastolic 70 mmHg 10/01/2014 Body Temperature 97.7 F Weight 180.25 lb Weight Percentile 96th Heart Rate 100 /min BP Systolic 124 mmHg BP Diastolic 77 mmHg O2 % BldC Oximetry 98 % 08/31/2014 Weight 175.38 lb Weight Percentile 95th Heart Rate 74 /min BP Systolic 123 mmHg BP Diastolic 68 mmHg 06/05/2014 Body Temperature 98.6 F Weight 172.38 lb Weight Percentile 95th Heart Rate 78 /min BP Systolic 106 mmHg BP Diastolic 71 mmHg O2 % BldC Oximetry 97 % 05/23/2014 Body Temperature 97.6 F Weight 172.00 lb Weight Percentile 95th Heart Rate 71 /min BP Systolic 121 mmHg BP Diastolic 73 mmHg O2 % BldC Oximetry 98 % 04/23/2014 Body Temperature 98.3 F Weight 170.00 lb Weight Percentile 95th Heart Rate 73 /min BP Systolic 111 mmHg BP Diastolic 57 mmHg O2 % BldC Oximetry 98 % 04/19/2014 Body Temperature 97.7 F Weight 170.38 lb Weight Percentile 95th Heart Rate 64 /min BP Systolic 112 mmHg BP Diastolic 82 mmHg O2 % BldC Oximetry 98 % 03/19/2014 Body Temperature 97.8 F Weight 169.50 lb Weight Percentile 95th BP Systolic 125 mmHg BP Diastolic 71 mmHg Height 63 inches 5'3" Height Percentile 35 % BMI (Body Mass Index) 30.0 kg/m2 Body Mass Index Percentile 96 % 03/19/2014 Body Temperature 97.2 F Weight 169.50 lb Weight Percentile 95th Heart Rate 65 /min BP Systolic 125 mmHg BP Diastolic 71 mmHg O2 % BldC Oximetry 97 % 03/09/2014 Body Temperature 98.1 F Weight 169.00 lb Weight Percentile 94th Heart Rate 62 /min BP Systolic 112 mmHg BP Diastolic 71 mmHg O2 % BldC Oximetry 98 % 03/06/2014 Body Temperature 98.9 F Weight 169.00 lb Weight Percentile 94th Heart Rate 66 /min BP Systolic 116 mmHg BP Diastolic 72 mmHg O2 % BldC Oximetry 97 % 12/05/2013 Body Temperature 96.3 F Weight 167.00 lb Weight Percentile 89th Heart Rate 77 /min BP Systolic 120 mmHg BP Diastolic 80 mmHg O2 % BldC Oximetry 98 % 03/15/2012 Body Temperature 98.1 F Weight 126.25 lb Weight Percentile 76th Heart Rate 76 /min BP Systolic 128 mmHg BP Diastolic 81 mmHg Height 62 inches 5'2" Height Percentile 33 % O2 % BldC Oximetry 97 % BMI (Body Mass Index) 23.1 kg/m2 Body Mass Index Percentile 84 % Results Test Date Test Result H/L Range Note Laboratory test finding 11/26/2016 TSH 1.81 uIU/mL 0.35-4.94 1 Comprehensive Metabolic (CMP) 11/26/2016 Sodium 138 mmol/L 134-142 1 Potassium 4.3 mmol/L 3.5-5.2 1 Chloride 107 mmol/L 97-109 1 Carbon Dioxide 22 mmol/L Low 24-34 1 Glucose 89 mg/dL 70-105 1 BUN 14 mg/dL 6-26 1 Creatinine 0.6 mg/dL 0.5-1.4 1 Calcium 9.1 mg/dL 8.5-10.2 1 Total Protein 6.5 g/dL 6.0-8.0 1 Albumin 4.4 g/dL 3.6-4.9 1 Globulin 2.1 g/dL 2.0-3.5 1 A/G Ratio 2.1 Ratio 1.0-2.2 1 Total Bilirubin 0.8 mg/dL 0.1-1.3 1 Alkaline Phosphatase 54 U/L 24-140 1 Alt 31 U/L 3-42 1 Ast 18 U/L 8-42 1 Anion Gap 13 mmol/L 6-14 1 Tiara Egfr >60 >60 1, 2 Non Tiara Egfr >60 >60 1, 3 Lipid 11/26/2016 Cholesterol 202 mg/dL High 50-199 1 Triglycerides 113 mg/dL 30-200 1 HDL 52 mg/dL 35-85 1, 4 Chol/ HDL Ratio 3.9 ratio 3.7-5.6 1 VLDL 23 mg/dL 2-29 1 LDL (Calc) 127 mg/dL High 20-99 1, 5 Ua RFX Micro & Culture II 10/07/2016 Urine Color YELLOW Yellow 6 Urine Clarity SL CLOUDY Clear 6 Urine Glucose - Dipstick NEGATIVE mg/dL Negative 6 Urine Bilirubin - Dipstick NEGATIVE Negative 6 Urine Ketone NEGATIVE mg/dL Negative 6 Urine Specific [place] 1.015 1.010-1.030 6 Urine Blood TRACE Negative 6 Urine PH 7.5 6.5-7.5 6 Urine Protein - Dipstick NEGATIVE mg/dL Negative 6 Urine Urobilinogen - Dipstick 0.2 E.U./dL 0.2-1.0 6 Urine Nitrite - Dipstick NEGATIVE Negative 6 Urine Leuk Esterase NEGATIVE Negative 6 Source: URINE, CLEAN CAT <SEE NOTE> 6, 7 Blood Culture 10/07/2016 Blood Culture Aerobic NO GROWTH: FINAL <SEE NOTE> 6, 8 Blood Culture Anaerobic NO GROWTH: FINAL <SEE NOTE> 6, 9 Influenza A/B Antigen 10/07/2016 Influenza A Antigen POSITIVE (Negative) 6 Influenza B Antigen Negative (Negative) 6, 10 CBS W/Automated Diff 10/07/2016 White Blood Count 7.9 K/uL 3.1-10.7 6 Red Blood Count 4.90 M/uL 3.90-5.40 6 Hemoglobin 14.3 gm/dL 11.6-15.8 6 Hematocrit 40.4 % 36.0-46.1 6 Mean Cell Volume 82.4 fl 80.9-99.0 6 Mean Corpuscular HGB 29.2 pg 25.9-32.7 6 Mean Corpuscular HGB Conc 35.4 g/dL High 30.8-34.3 6 Platelet Count 167 K/uL 155-360 6 Red Cell Distri Width SD 39.7 fl 3-47 6 Red Cell Distri Width %CV 13.5 % 11.7-14.4 6 Mean Platelet Volume 10.3 fL 8.9-12.4 6 Neut% 82.2 % High 28.0-68.0 6 Lymph % 7.8 % Low 17.0-46.1 6 Mathews % 9.2 % 4.3-13.2 6 Eo% 0.4 % 0.0-6.6 6 Bas% 0.4 % 0.0-1.1 6 Neut# 6.46 K/uL 1.8-7.0 6 Lymph # 0.61 K/uL Low 1.8-7.0 6 Mathews # 0.72 K/uL 0.3-0.9 6 Eos # 0.03 K/uL 0.0-0.5 6 Baso # 0.03 K/uL 0.0-0.1 6 Laboratory test 10/07/2016 Lactic Acid 1.6 mmol/L 0.4-1.9 6 finding Laboratory test 10/07/2016 Mathews Screen NEGATIVE Negative 6 finding (Heterophile) Blood Culture 10/07/2016 Blood Culture NO GROWTH: FINAL , 11 Aerobic <SEE NOTE> Blood Culture Anaerobic NO GROWTH: FINAL <SEE NOTE> 6, 12 CBC With Auto Diff 04/07/2016 WBC 7.7 K/uL 4.1-11.0 13 RBC 4.97 M/uL 4.00-5.40 13 Hemoglobin 14.2 gm/dL 12.0-16.0 13 Hematocrit 42.0 % 36.0-47.0 13 MCV 84.7 fL 80.0-97.0 13 MCH 28.7 pg 27.0-32.0 13 MCHC 33.9 g/dL 32.0-36.0 13 RDW 14.0 % 11.5-14.5 13 PLT Count 192 K/ul 140-400 13 Laboratory test finding 04/07/2016 TSH 2.48 uIU/mL 0.35-4.94 13 Manual Differential 04/07/2016 Neutrophils 54 % 35-75 13 Lymphocytes 33 % 16-52 13 Monocytes 12 % High 0-8 13 Eosinophils 1 % 0-5 13 Basophils 0 % 0-4 13 Platelet Estimate Normal Normal 13 RBC Morphology Normal Normal 13 Abs Neutrophils# 4.2 K/ul 1.8-7.7 13 Abs Lymphocytes# 2.5 K/ul 1.2-4.8 13 Abs Monocytes# 0.9 K/ul High 0.0-0.8 13 Abs Eosinophils# 0.1 K/ul 0.0-0.5 13 Abs Basophils# 0.0 K/ul 0.0-0.3 13 Laboratory test finding 10/24/2015 TSH 1.91 uIU/mL 0.35-4.94 13 Comprehensive Metabolic (CMP) 10/24/2015 Sodium 136 mmol/L 134-142 13 Potassium 4.6 mmol/L 3.5-5.2 13 Chloride 104 mmol/L 97-109 13 Carbon Dioxide 27 mmol/L 24-34 13 Glucose 99 mg/dL 70-105 13 BUN 13 mg/dL 6-26 13 Creatinine 0.7 mg/dL 0.5-1.4 13 Calcium 9.3 mg/dL 8.5-10.2 13 Total Protein 6.8 g/dL 6.0-8.0 13 Albumin 4.3 g/dL 3.6-4.9 13 Globulin 2.5 g/dL 2.0-3.5 13 A/G Ratio 1.7 Ratio 1.0-2.2 13 Total Bilirubin 0.5 mg/dL 0.1-1.3 13 Alkaline Phosphatase 61 U/L 24-140 13 Alt 20 U/L 3-42 13 Ast 18 U/L 8-42 13 Anion Gap 10 mmol/L 6-14 13 Tiara Egfr >60 >60 13, 14 Non Tiara Egfr >60 >60 13, 15 CBC With Auto Diff 10/24/2015 WBC 6.8 K/uL 4.1-11.0 13 RBC 5.10 M/uL 4.00-5.40 13 Hemoglobin 14.3 gm/dL 12.0-16.0 13 Hematocrit 42.6 % 36.0-47.0 13 MCV 83.6 fL 80.0-97.0 13 MCH 28.0 pg 27.0-32.0 13 MCHC 33.5 g/dL 32.0-36.0 13 RDW 13.9 % 11.5-14.5 13 PLT Count 173 K/ul 140-400 13 Neutrophil 53.7 % 35.0-75.0 13 Lymphocyte 31.3 % 16.0-52.0 13 Monocyte 7.5 % 2.0-10.0 13 Eosinophil 6.7 % High 0.0-5.0 13 Basophil 0.8 % 0.0-4.0 13 Abs Neutrophils 3.7 K/uL 2.1-8.0 13 Abs Lymphocytes 2.1 K/uL 0.8-5.5 13 Abmon 0.5 K/uL 0.1-1.0 13 Abs Eosinophils 0.5 K/uL 0.0-0.5 13 Abs Basophils 0.1 K/uL 0.0-0.3 13 Laboratory test finding 08/06/2015 TSH 1.47 uIU/mL 0.35-4.94 16 Laboratory test finding 03/18/2015 TSH 1.74 uIU/mL 0.35-4.94 17 Laboratory test finding 12/17/2014 TSH 2.10 uIU/mL 0.34-5.60 18 Laboratory test finding 11/26/2014 TSH 4.83 uIU/mL 0.34-5.60 19 Laboratory test finding 10/25/2014 TSH 3.77 uIU/mL 0.34-5.60 20 Laboratory test finding 10/01/2014 TSH 5.33 uIU/mL 0.34-5.60 20 CBC With Auto Diff 10/01/2014 WBC 8.8 K/uL 4.5-13.5 20 RBC 4.59 M/uL 4.10-5.10 20 Hemoglobin 13.4 gm/dL 12.0-16.0 20 Hematocrit 38.8 % 36.0-46.0 20 MCV 84.7 fL 80.0-97.0 20 MCH 29.3 pg 27.0-32.0 20 MCHC 34.5 g/dL 32.0-36.0 20 RDW 13.8 % 11.5-14.5 20 PLT Count 217 K/ul 140-400 20 Neutrophil 62.1 % 27.0-81.0 20 Lymphocyte 28.0 % 19.0-57.0 20 Monocyte 7.5 % 2.0-10.0 20 Eosinophil 1.8 % 0.0-4.0 20 Basophil 0.6 % 0.0-3.0 20 Abs Neutrophils 5.5 K/uL 1.8-8.0 20 Abs Lymphocytes 2.5 K/uL 1.2-5.2 20 Abmon 0.7 K/uL 0.1-1.0 20 Abs Eosinophils 0.2 K/uL 0.0-0.5 20 Abs Basophils 0.0 K/uL 0.0-0.3 20 Laboratory test finding 10/01/2014 Lyme Igm/Igg AB NEGATIVE (Neg) 20, 21 Laboratory test finding 05/23/2014 TSH 4.23 uIU/mL 0.34-5.60 22 Free T4 0.71 ng/dL 0.50-1.60 22 CBC With Auto Diff 05/23/2014 WBC 8.5 K/uL 4.5-13.5 22 RBC 4.92 M/uL 4.10-5.10 22 Hemoglobin 13.9 gm/dL 12.0-16.0 22 Hematocrit 40.6 % 36.0-47.0 22 MCV 82.5 fL 80.0-97.0 22 MCH 28.3 pg 27.0-32.0 22 MCHC 34.3 g/dL 32.0-36.0 22 RDW 13.8 % 11.5-14.5 22 PLT Count 182 K/ul 140-400 22 Neutrophil 61.0 % 27.0-81.0 22 Lymphocyte 29.6 % 19.0-57.0 22 Monocyte 6.3 % 2.0-10.0 22 Eosinophil 2.6 % 0.0-4.0 22 Basophil 0.5 % 0.0-3.0 22 Abs Neutrophils 5.2 K/uL 1.8-8.0 22 Abs Lymphocytes 2.5 K/uL 1.2-5.2 22 Abmon 0.5 K/uL 0.1-1.0 22 Abs Eosinophils 0.2 K/uL 0.0-0.5 22 Abs Basophils 0.0 K/uL 0.0-0.3 22 Comprehensive Metabolic (CMP) 05/23/2014 Sodium 136 mmol/L 134-142 22 Potassium 4.2 mmol/L 3.5-5.2 22 Chloride 108 mmol/L 97-109 22 Carbon Dioxide 20 Results verif <SEE NOTE> mmol/L Low 24-34 22, 23 Glucose 99 mg/dL 70-105 22 BUN 8 mg/dL 6-26 22 Creatinine 0.6 mg/dL 0.5-1.4 22 Calcium 8.9 mg/dL 8.5-10.2 22 Total Protein 6.3 g/dL 6.0-8.0 22 Albumin 4.1 g/dL 3.6-4.9 22 Globulin 2.2 g/dL 2.0-3.5 22 A/G Ratio 1.9 Ratio 1.0-2.2 22 Total Bilirubin 0.4 mg/dL 0.1-1.3 22 Alkaline Phosphatase 56 U/L 24-140 22 Alt 15 U/L 3-42 22 Ast 14 U/L 8-42 22 Anion Gap 12 mmol/L 6-14 22 Tiara Egfr >60 >60 22, 24 Non Tiara Egfr >60 >60 22, 25 1 This sample is drawn by:EDVIN/HUYEN 2 Concerning GFR Guidelines for Americans: Normal function or mild renal disease, if clinically at risk: >/=60 mL/min Moderately decreased: 30-59 Severely decreased: 15-29 Renal failure: <15 3 Concerning GFR Guidelines: Normal function or mild renal disease, if clinically at risk: >/=60 mL/min Moderately decreased: 30-59 Severely decreased: 15-29 Renal failure: <15 Glomerular Filtration Rate (GFR) is estimated based on the MDRD equation, which assumes a steady state for creatinine as recommended by the National Kidney Disease Education Program in conjunction with the National Institutes of Health and the National Kidney Foundation. Clinical conditions in which it may be necessary to measure GFR by using clearance methods include extremes of age and body size, severe malnutrition or obesity, diseases of skeletal muscle, paraplegia or quadriplegia, vegetarian diet, rapidly changing kidney function, and calculation of the dose of potentially toxic drugs that are excreted by the kidneys. 4 Per NCEP ATP III Guidelines: Results lower than 40 mg/dL are suggestive of increased risk for coronary artery disease. Results > or=to 60 mg/dL are considered a negative risk factor. 5 Per NCEP ATP III Guidelines: Normal Population <130 Patients with medical conditions: CHD/DM Optimal: <100 Borderline high: 130-159 High: 160-189 Very high: >189 6 FEVER, CHILLS, BODY ACHES, COUGH, CONTE 7 URINE, CLEAN CATCH 8 NO GROWTH: FINAL REPORT 9 NO GROWTH: FINAL REPORT 10 Please Note: A POSITIVE result for influenza A and/or B antigen does not rule out a co-infection with other pathogens or identify any specific influenza A virus subtype. A NEGATIVE result for influenza A and/or B antigen does not preclude influenza virus infection and should not be the sole basis for treatment or other management decisions, since the antigen present in the specimen may be below the detection limit of the test. A NEGATIVE result is PRESUMPTIVE and it is recommended these results be confirmed by virus culture or an FDA-cleared influenza A and B molecular assay. Method: [employer] Chromatographic immunoassay 11 NO GROWTH: FINAL REPORT 12 NO GROWTH: FINAL REPORT 13 This sample is drawn by:EDVIN/HUYEN 14 Concerning GFR Guidelines for Americans: Normal function or mild renal disease, if clinically at risk: >/=60 mL/min Moderately decreased: 30-59 Severely decreased: 15-29 Renal failure: <15 15 Concerning GFR Guidelines: Normal function or mild renal disease, if clinically at risk: >/=60 mL/min Moderately decreased: 30-59 Severely decreased: 15-29 Renal failure: <15 Glomerular Filtration Rate (GFR) is estimated based on the MDRD equation, which assumes a steady state for creatinine as recommended by the National Kidney Disease Education Program in conjunction with the National Institutes of Health and the National Kidney Foundation. Clinical conditions in which it may be necessary to measure GFR by using clearance methods include extremes of age and body size, severe malnutrition or obesity, diseases of skeletal muscle, paraplegia or quadriplegia, vegetarian diet, rapidly changing kidney function, and calculation of the dose of potentially toxic drugs that are excreted by the kidneys. 16 This sample is drawn by:BANDAR/SYEDA 17 This sample is drawn by:EVDIN/HUYEN 18 This sample is drawn by:BANDAR/PLATE MOUNTER 19 This sample is drawn by:LS/MEDICAL SCIENTIST Fastin hours 20 This sample is drawn by:EDVIN/MEDICAL SCIENTIST 21 A Negative serologic test for Lyme Disease indicates no serologic evidence of infection with B burgdorferi at the time this specimen was collected. A repeat specimen should be collected in 2 to 4 weeks if clinically indicated. Unless otherwise specified, testing performed by [facility], [address] [address] 22 This sample is drawn by:EDVIN/MEDICAL SCIENTIST Fastin hours This sample is drawn by:EDVIN /MEDICAL SCIENTIST Fastin hours Fastin hours Fastin hours This sample is drawn by:EDVIN/HUYEN Fastin hours 23 20 Results verified by repeat analysis 24 Concerning GFR Guidelines for Americans: Normal function or mild renal disease, if clinically at risk: >/=60 mL/min Moderately decreased: 30-59 Severely decreased: 15-29 Renal failure: <15 25 Concerning GFR Guidelines: Normal function or mild renal disease, if clinically at risk: >/=60 mL/min Moderately decreased: 30-59 Severely decreased: 15-29 Renal failure: <15 Glomerular Filtration Rate (GFR) is estimated based on the MDRD equation, which assumes a steady state for creatinine as recommended by the National Kidney Disease Education Program in conjunction with the National Institutes of Health and the National Kidney Foundation. Clinical conditions in which it may be necessary to measure GFR by using clearance methods include extremes of age and body size, severe malnutrition or obesity, diseases of skeletal muscle, paraplegia or quadriplegia, vegetarian diet, rapidly changing kidney function, and calculation of the dose of potentially toxic drugs that are excreted by the kidneys. Procedures Date CPT Code Description Status 06/21/2018 18158 Destruction Benign Lesions Other Than Skin Tags Up To Completed 14 Lesions 06/10/2018 25676 Destruction Benign Lesions Other Than Skin Tags Up To Completed 14 Lesions 06/28/2017 27395 Admin Of Inj (Therapeutic Phrophylactic Or Diagnostic Completed Subq Inj 05/28/2016 03981 Destruction Benign Lesions Other Than Skin Tags Up To Completed 14 Lesions 06/20/2015 02190 Admin Of Inj (Therapeutic Phrophylactic Or Diagnostic Completed Subq Inj 02/19/2015 45368 Destruction Benign Lesions Other Than Skin Tags Up To Completed 14 Lesions Encounters Type Date Location Provider CPT E/M Dx Office Visit 04/26/2018 8:15a Zoila Cho, N.P. 84649 S06.0x0D Office Visit 01/14/2018 10:45a Zoila Cho, N.P. 41865 F39 J02.9 Office Visit 08/12/2017 8:45a Zoila Cho, N.P. 79782 F41.1 F33.1 Office Visit 07/15/2017 8:45a Zoila Cho, N.P. 25206 F33.1 F41.1 Office Visit 06/28/2017 9:00a Zoila Cho, N.P. 52158 E03.8 F33.1 Z23 Office Visit 06/03/2017 8:45a Zoila Cho, N.P. 32248 K21.0 Office Visit 05/27/2017 9:15a Zoila Cho, N.P. 62756 F41.1 F33.1 Office Visit 05/17/2017 11:00a Zoila Cho, N.P. 44238 F41.1 F33.1 Office Visit 02/15/2017 8:45a Zoila Cho, N.P. 79552 E03.8 F41.1 Z30.09 Office Visit 11/26/2016 8:00a Zoila Cho, N.P. 99813 F90.0 E03.8 F41.1 Z13.220 E66.3 Z30.09 Office Visit 10/12/2016 11:15a Zoila Cho, N.P. 50254 J09.x2 Office Visit 08/26/2016 3:30p Zoila Cho, N.P. 34510 F90.0 E03.8 Office Visit 05/21/2016 9:00a Zoila Cho, N.P. 71666 Z00.00 Z23 F41.1 Office Visit 04/07/2016 9:30a Zoila Cho, N.P. 58493 F90.0 E03.8 F41.1 Office Visit 02/20/2016 10:30a Zoila Cho, N.P. 59567 H92.03 H91.92 Office Visit 12/31/2015 3:15p Zoila Cho, N.P. 03118 E03.8 F90.0 F33.1 Office Visit 10/24/2015 8:30a Zoila Cho, N.P. 87141 L63.9 E03.8 Office Visit 09/18/2015 10:00a Zoila Cho, N.P. 77102 F90.0 Office Visit 08/06/2015 3:30p Zoila Cho, N.P. 03873 E03.8 F90.0 E66.3 Office Visit 06/20/2015 8:15a Zoila Cho, N.P. 32541 Z23 F90.0 F41.1 F33.1 Office Visit 05/09/2015 11:00a Zoila Cho, N.P. 81926 244.8 314.00 296.32 Office Visit 04/04/2015 8:15a Zoila Cho, N.P. 12754PHP 244.8 314.00 296.32 Office Visit 04/04/2015 8:15a Zoila Cho, N.P. 21158LML V20.2 Office Visit 03/19/2015 9:30a Zoila Cho, N.P. 29285 244.8 314.00 296.32 Office Visit 02/28/2015 10:15a Zoila Cho, N.P. 20314 078.10 780.79 780.4 Office Visit 02/14/2015 3:00p Zoila Cho, N.P. 15563 314.00 296.32 Office Visit 01/31/2015 3:15p Zoila Cho, N.P. 02019 314.00 296.32 Office Visit 01/22/2015 3:00p Zoila Cho, N.P. 28022 296.32 314.00 Office Visit 12/18/2014 3:15p Zoila Cho, N.P. 70077 244.8 296.32 Office Visit 11/27/2014 3:00p Zoila Cho, N.P. 28361 244.8 296.32 300.02 Office Visit 10/01/2014 1:30p Zoila Cho, N.P. 70656 719.49 780.79 296.32 Office Visit 08/31/2014 11:15a Zoila Cho, N.P. 41636 296.32 300.02 Office Visit 06/05/2014 2:45p Zoila Cho N.P. 82796 296.32 Office Visit 05/23/2014 8:00a Zoila Cho N.P. 02928 296.32 780.79 Office Visit 04/23/2014 9:30a Zoila Cho, N.P. 73733 782.9 Office Visit 04/19/2014 10:00a Zoila Cho, N.P. 03633 782.9 Office Visit 03/19/2014 11:45a Zoila Cho, N.P. 42786JDI V20.2 Office Visit 03/19/2014 11:45a Zoila Cho N.P. 38294ILS V04.89 493.10 V74.1 V20.2 Office Visit 03/09/2014 11:45a Zoila Cho, N.P. 41138 782.9 Office Visit 03/06/2014 10:15a Zoila Cho, N.P. 79565 782.9 Office Visit 12/05/2013 2:00p Zoila Cho, N.P. 02381 493.10 V20.2 Office Visit 03/15/2012 9:30a Zoila Cho, N.P. 89604FVM V20.2 Plan of Care 06/21/2018 - Zoila Bell, N.P.B07.9 Viral wart, unspecifiedComments:keep area clean and dryreport if any signs of infection occur of return in 10 days
--- OUTSIDE RECORDS SUMMARY | 2018-06-29 16:56 | XMS REPORT ---
:2000 External Reference #:[id number] Author Organization [facility] Address [address] [address] Phone [phone] Care Team Providers Name Role Phone Zoila Bell N.P. Care Team Information Adult School Counselor Unavailable Payers Type Date Identification Numbers Payment Provider Subscriber Commercial Effective: Policy Number: BCBS Ppo Awa Anneliese 2017 [id number] PayID: [id number] [address] [address] [place] [address] Medigap Part B Policy Number: [address] [place] [address] Danette Carver PayID: [id number] [address] [place] [address] Workers Compensation Effective: Policy Number: Ayad Carver 2017 [id number] Onset: 2017 PayID: [id number] [address] [address] [place] [address] Workers Compensation Effective: Policy Number: Valerie Samaniego 2018 [id number] [employer] Onset: 2018 PayID: [id number] [address] [facility] [address] [place] [address] Problems Date Description Provider Status Onset: 11/27/2014 [...] level completed, 12th grade Occupation Currently Working [employer] Smoking Patient has never smoked Allergies, Adverse [...] [address] [facility]eth [facility] 01/14 Bupropion HCL ER 05/17 Hx Tablets 150mg 30tab take one Ray, () ER 24HR s tablet by Zoila, - mouth every N.P. 05/27 Medical Note 10/12 Hx may return to [employer] school and [facility], - all N.P. 05/17 activities 10/13/16 Methylphenidate 07/13 Hx Tablets 20mg 30tab 1 po q am Eek, HCL ER s [facility], - N.P. 11/26 School Note 02/19 Hx may not attend [employer] [facility] classes today N.P. 08/26 for reasons Ritalin 12/30 Hx Tablets 10mg 30tab 1 po qd at s lunch in [facility], - school N.P. 12/30 Fluocinonide 10/24 Hx Cream 0.05% 30gm apply sparingly to [facility], - itchy rash N.P. 05/21 three times a day Medical Note 10/07 Hx patient is currently [facility], - being treated N.P. 04/07 with medication for generalized anxiety disorder Methylphenidate 08/06 Hx Tablets 27mg 30tab 1 by mouth Ray, HCL ER 24HR s every in the [facility], - morning N.P. 07/13 Medical Note 06/21 Hx patient may self-medicate [facility], - with ritalin N.P. 05/17 mid-afternoon during school days Ritalin 05/09 Hx Tablets 10mg 90tab 1 by mouth s three times a [facility], - day N.P. 11/26 Ritalin 03/28 Hx Tablets 20mg 30tab 1 po q am s Zoila, - N.P. 05/09 Meclizine HCL 02/28 Hx Tablets 25mg 24tab 1 by mouth Ray, s three times a [facility], - day for N.P. 06/20 Methylphenidate 02/28 Hx Capsules 20mg 30cap 1 by mouth Ray, HCL ER (CD) ER s every in the [facility], - morning N.P. 08/06 School Note 02/28 Hx no school today for [facility], - medical N.P. 03/19 Methylphenidate 02/14 Hx Capsules 30mg 30cap 1 by mouth Eek, HCL ER (CD) ER s qam [facility], - N.P. 02/28 Methylphenidate 02/11 Hx Capsules 10mg 60cap 2 by mouth Eek, HCL ER (CD) ER s every [facility], - morning N.P. 02/11 Methylphenidate 02/11 Hx Capsules 20mg 30cap 1 po q am Eek, HCL ER (CD) ER s [facility], - N.P. 02/14 Methylphenidate 01/22 Hx Capsules 10mg 30cap 1 by mouth Eek, HCL ER (CD) ER s every in the [facility], - morning N.P. 02/11 Ritalin 01/22 Hx Tablets 10mg 60tab 1 by mouth , s twice a day [facility], - N.P. 03/28 Synthroid 11/27 Hx Tablets 50mcg 30tab take one s tablet by [facility], - mouth once a N.P. 05/17 day on stomach Synthroid 10/02 Hx Tablets 25mcg 30tab 1 by mouth Eek, s every day on [facility], - empty stomach N.P. 11/27 Sertraline HCL 08/31 Hx Tablets 100mg 30tab 1 by mouth Eek, s [facility] 06/20 Sertraline HCL 05/23 Hx Tablets 50mg 30tab 1 by mouth Ray, s every day Zoila, - N.P. 08/31 Zinc Oxide 04/19 Hx Ointment 40% Zoila, - N.P. 05/21 Lotrisone 03/06 Hx Cream 1-0.05% 45gm apply three times a day Timmy Cummings to affected N.P. 04/19 Proair HFA 12/05 Hx Aerosol 108(90Bas 1unit 2 puffs qid Eek e) s prn Zoila, - mcg/Act N.P. 05/23 Hydroxyzine 12/05 Hx Capsules 25mg 30cap 1-2 q 6h prn Ray, Pamoate s anxiety Zoila, - N.P. 05/23 Melatonin 12/05 Hx Capsules 1mg Eek Zoila, - N.P. 08/12 Minastrin 24 12/05 Hx Chewtabs 1-20mg-mc 1 po qd g(24) Zoila, - N.P. 08/26 Medications Administered in Office Medication Date Status Form Strength Qnty SIG Indications Ordering Provider PPD Administered Injection Ray, 4 [place], N.P. Immunizations CPT Code Status Date Vaccine Lot # [id number] Given 06/28/2017 Influenza Vac, 3 Yrs & Older, Quadrivalent, Split, [id number] Im Use 60063 Given 05/21/2016 Menactra/Menveo Meningococcal Vaccine [id number] 98173 Given 06/20/2015 Influenza Vac, 3 Yrs & Older, Quadrivalent, Split, [id number] Im Use Q2038 Given 05/20/2011 Fluzone Trivalent Immunization 87211 Given 01/28/2011 HPV Vaccine (Gardasil) 3 Dose Schedule 63194 Given 09/08/2010 HPV Vaccine (Gardasil) 3 Dose Schedule 68927 Given 05/22/2010 HPV Vaccine (Gardasil) 3 Dose Schedule Q2038 Given 07/11/2009 Fluzone Trivalent Immunization 72083 Given 05/22/2009 Meningococcal Immunization 56127 Given 05/22/2009 Tdap (Adacel) Ages 7 And Above Only Q2038 Given 08/16/2008 Fluzone Trivalent Immunization 83498 Given 05/17/2008 Varicella (Chicken Pox) Immunization 15914 Given 06/15/2007 Hepatitis A, Ped/Adolescent 2 Dose Schedule Q2038 Given 06/15/2007 Fluzone Trivalent Immunization 44584 Given 05/07/2006 Hepatitis A, Ped/Adolescent 2 Dose Schedule 56495 Given 07/22/2004 Afluria Or Fluvirin Flu Vac Intramuscular 20065 Given 08/30/2003 Influenza Vaccine Preservative Free 6-35 Months Of Age 54160 Given 07/20/2003 Influenza Vaccine Preservative Free 6-35 Months Of Age 79234 Given 05/04/2003 MMR Virus Immunization 78668 Given 03/02/2003 IPV / Poliomyelitis Immunization 57699 Given 03/02/2003 DTP Immunization 32305 Given 09/12/1999 Varicella (Chicken Pox) Immunization 95712 Given 09/12/1999 DTP Immunization 84087 Given 09/12/1999 Hib HbOC Conjugate 4 Dose Schedule 71851 Given 04/24/1999 MMR Virus Immunization 75391 Given 1998 Hepatitis B Vac Ped/Adolescent 3 Dose Schedule 65710 Given 1998 IPV / Poliomyelitis Immunization 98435 Given 1998 DTP Immunization 03700 Given 1998 Hib HbOC Conjugate 4 Dose Schedule 48512 Given 1998 Hepatitis B Vac Ped/Adolescent 3 Dose Schedule 91048 Given 1998 DTP Immunization 40660 Given 1998 Hib HbOC Conjugate 4 Dose Schedule 32982 Given 1998 IPV / Poliomyelitis Immunization 05453 Given 1998 Hepatitis B Vac Ped/Adolescent 3 Dose Schedule 26433 Given 1998 IPV / Poliomyelitis Immunization 24512 Given 1998 DTP Immunization 83356 Given 1998 Hib HbOC Conjugate 4 Dose Schedule 01353 Refused 10/15/2017 Influenza Vac, 3 Yrs & [...] Ketone NEGATIVE mg/dL Negative 6 Urine Specific [place] 1.015 1.010-1.030 6 Urine Blood TRACE Negative [...] Lymph % 7.8 % Low 17.0-46.1 6 [place] % 9.2 % 4.3-13.2 6 Eo% 0.4 % 0.0-6.6 6 Bas% 0.4 % 0.0-1.1 6 Neut# 6.46 K/uL 1.8-7.0 6 Lymph # 0.61 K/uL Low 1.8-7.0 6 [place] # 0.72 K/uL 0.3-0.9 6 Eos # 0.03 K/uL 0.0-0.5 6 Baso # 0.03 K/uL 0.0-0.1 6 Laboratory test 10/07/2016 Lactic Acid 1.6 mmol/L 0.4-1.9 6 finding Laboratory test 10/07/2016 [place] Screen NEGATIVE Negative 6 finding (Heterophile) Blood [...] influenza A and B molecular assay. Method: [employer] Chromatographic immunoassay 11 NO GROWTH: FINAL REPORT [...] drawn by:BANDAR/SYEDA 17 This sample is drawn by:EDVIN/HUYEN 18 This sample is drawn by:BANDAR/THEOLOGY TEACHER 19 This sample is drawn by:LS/BOLTING MACHINE OPERATOR Fastin hours 20 This sample is drawn by:EDVIN/BOLTING MACHINE OPERATOR 21 A Negative serologic test for Lyme Disease indicates no serologic evidence of infection with B burgdorferi at the time this specimen was collected. A repeat specimen should be collected in 2 to 4 weeks if clinically indicated. Unless otherwise specified, testing performed by [facility], [address] [address] 22 This sample is drawn by:EDVIN/BOLTING MACHINE OPERATOR Fastin hours This sample is drawn by:EDVIN /BOLTING MACHINE OPERATOR Fastin hours Fastin hours Fastin hours This [...] Procedures Date CPT Code Description Status 06/21/2018 40619 Destruction Benign Lesions Other Than Skin Tags Up To Completed 14 Lesions 06/10/2018 07082 Destruction Benign Lesions Other Than Skin Tags Up To Completed 14 Lesions 06/28/2017 19138 Admin Of Inj (Therapeutic Phrophylactic Or Diagnostic Completed Subq Inj 05/28/2016 65768 Destruction Benign Lesions Other Than Skin Tags Up To Completed 14 Lesions 06/20/2015 49857 Admin Of Inj (Therapeutic Phrophylactic Or Diagnostic Completed Subq Inj 02/19/2015 26161 Destruction Benign Lesions Other Than Skin Tags Up To Completed 14 Lesions Encounters Type Date Location Provider CPT E/M Dx Office Visit 04/26/2018 8:15a Zoila Cho, N.P. 04025 S06.0x0D Office Visit 01/14/2018 10:45a Zoila Cho, N.P. 16525 F39 J02.9 Office Visit 08/12/2017 8:45a Zoila Cho, N.P. 10305 F41.1 F33.1 Office Visit 07/15/2017 8:45a Zoila Cho, N.P. 09458 F33.1 F41.1 Office Visit 06/28/2017 9:00a Zoila Coh, N.P. 61498 E03.8 F33.1 Z23 Office Visit 06/03/2017 8:45a Zoila Cho, N.P. 97013 K21.0 Office Visit 05/27/2017 9:15a Zoila Cho, N.P. 64690 F41.1 F33.1 Office Visit 05/17/2017 11:00a Zoila Cho, N.P. 79914 F41.1 F33.1 Office Visit 02/15/2017 8:45a Zoila Cho, N.P. 30423 E03.8 F41.1 Z30.09 Office Visit 11/26/2016 8:00a Zoila Cho, N.P. 10375 F90.0 E03.8 F41.1 Z13.220 E66.3 Z30.09 Office Visit 10/12/2016 11:15a Zoila Cho, N.P. 63936 J09.x2 Office Visit 08/26/2016 3:30p Zoila Cho, N.P. 95672 F90.0 E03.8 Office Visit 05/21/2016 9:00a Zoila Cho, N.P. 75396 Z00.00 Z23 F41.1 Office Visit 04/07/2016 9:30a Zoila Cho, N.P. 52334 F90.0 E03.8 F41.1 Office Visit 02/20/2016 10:30a Zoila Cho, N.P. 59311 H92.03 H91.92 Office Visit 12/31/2015 3:15p Zoila Cho, N.P. 47496 E03.8 F90.0 F33.1 Office Visit 10/24/2015 8:30a Zoila Cho, N.P. 43142 L63.9 E03.8 Office Visit 09/18/2015 10:00a Zoila Cho, N.P. 35699 F90.0 Office Visit 08/06/2015 3:30p Zoila Cho, N.P. 70322 E03.8 F90.0 E66.3 Office Visit 06/20/2015 8:15a Zoila Cho, N.P. 77498 Z23 F90.0 F41.1 F33.1 Office Visit 05/09/2015 11:00a Zoila Cho, N.P. 49886 244.8 314.00 296.32 Office Visit 04/04/2015 8:15a Zoila Cho, N.P. 65117KSC 244.8 314.00 296.32 Office Visit 04/04/2015 8:15a Zoila Cho, N.P. 38077IDA V20.2 Office Visit 03/19/2015 9:30a Zoila Cho, N.P. 57374 244.8 314.00 296.32 Office Visit 02/28/2015 10:15a Zoila Cho, N.P. 26938 078.10 780.79 780.4 Office Visit 02/14/2015 3:00p Zoila Cho, N.P. 71843 314.00 296.32 Office Visit 01/31/2015 3:15p Zoila Cho, N.P. 08367 314.00 296.32 Office Visit 01/22/2015 3:00p Zoila Cho, N.P. 29378 296.32 314.00 Office Visit 12/18/2014 3:15p Zoila Cho, N.P. 36522 244.8 296.32 Office Visit 11/27/2014 3:00p Zoila Cho, N.P. 21354 244.8 296.32 300.02 Office Visit 10/01/2014 1:30p Zoila Cho, N.P. 17820 719.49 780.79 296.32 Office Visit 08/31/2014 11:15a Zoila Cho, N.P. 49970 296.32 300.02 Office Visit 06/05/2014 2:45p Zoila Cho N.P. 76836 296.32 Office Visit 05/23/2014 8:00a Zoila Cho N.P. 54233 296.32 780.79 Office Visit 04/23/2014 9:30a Zoila Cho, N.P. 37899 782.9 Office Visit 04/19/2014 10:00a Zoila Cho, N.P. 85416 782.9 Office Visit 03/19/2014 11:45a Zoila Cho, N.P. 98476SMH V20.2 Office Visit 03/19/2014 11:45a Zoila Cho N.P. 09490XEO V04.89 493.10 V74.1 V20.2 Office Visit 03/09/2014 11:45a Zoila Cho, N.P. 62238 782.9 Office Visit 03/06/2014 10:15a Zoila Cho, N.P. 21964 782.9 Office Visit 12/05/2013 2:00p Zoila Cho, N.P. 02452 493.10 V20.2 Office Visit 03/15/2012 9:30a Zoila Cho, N.P. 81338OYE V20.2 Plan of Care 06/21/2018 - Zoila Bell, N.P.B07.9 Viral wart, unspecifiedComments:keep area clean and dryreport if any signs of infection occur of return in 10 days
[2018-06-29 17:07] VITALS: BP 116/64
--- NOTE | 2018-06-29 17:20 | UC ---
Throat Pain/Nasal Jose G HPI - HPI Summary HPI Summary: 24-year-old woman here with a complaint of sinus congestion and rhinorrhea with a headache for closer week. She's been vomiting intermittently. She felt like she was starting to feel little better yesterday so she can return to work today and she gets at home because she vomited again. She does have some abdominal pain associated with the vomiting but otherwise she does not have abdominal pain. She is prediabetic. No recorded fevers. - History of Current Complaint Chief Complaint: UCGI Stated Complaint: VOMITING,STUFFY NOSE Time Seen by Provider: 06/29/18 17:05 Hx Last Menstrual Period: 05/30/18 on BCP Pain Intensity: 0 - Allergies/Home Medications Allergies/Adverse Reactions: Allergies Allergy/AdvReac Type Severity Reaction Status Date / Time No Known Allergies Allergy Verified 05/03/18 21:00 Home Medications: Home Medications Escitalopram (NF) [Lexapro 20 mg (NF)] 20 mg PO DAILY 06/29/18 [History Confirmed 06/29/18] Methylphenidate HCl [Methylphenidate ER] 20 mg PO BID 06/29/18 [History Confirmed 06/29/18] PMH/Surg Hx/FS Hx/Imm Hx Endocrine History: Diabetes - Surgical History Surgical History: None - Family History Known Family History: Negative: Diabetes, Blood Disorder - Social History Alcohol Use: Occasionally Substance Use Type: Marijuana Substance Use Comment - Amount & Last Used: nightly Smoking Status (MU): Never Smoked Tobacco - Immunization History Most Recent Influenza Vaccination: 07/2013 Most Recent Pneumonia Vaccination: never Vaccination Up to Date: Yes Review of Systems Constitutional: Negative Skin: Negative Eyes: Negative ENT: Sore Throat, Nasal Discharge, Sinus Congestion, Sinus Pain/Tenderness Respiratory: Negative Cardiovascular: Negative Gastrointestinal: Vomiting Motor: Negative Neurovascular: Negative Musculoskeletal: Negative Neurological: Negative Psychological: Negative Is Patient Immunocompromised?: No All Other Systems Reviewed And Are Negative: Yes Physical Exam Triage Information Reviewed: Yes Appearance: Well-Appearing, No Pain Distress, Well-Nourished Vital Signs: Initial Vital Signs Temp 97.8 F 06/29/18 17:00 Pulse 65 06/29/18 17:00 Resp 16 06/29/18 17:00 BP 116/64 06/29/18 17:00 Pulse Ox 99 06/29/18 17:00 Vital Signs Reviewed: Yes Eye Exam: Normal Eyes: Positive: Conjunctiva Clear ENT: Positive: Pharyngeal erythema, Nasal congestion, Nasal drainage, TMs normal Neck exam: Normal Neck: Positive: Supple Respiratory: Positive: Lungs clear, Normal breath sounds, No respiratory distress Cardiovascular: Positive: RRR Musculoskeletal Exam: Normal Musculoskeletal: Positive: Strength Intact, ROM Intact Neurological Exam: Normal Neurological: Positive: Alert Psychological Exam: Normal Psychological: Positive: Age Appropriate Behavior Skin Exam: Normal Throat Pain/Nasal Course/Dx - Course Course Of Treatment: DISCUSSED VIRAL VERSES BACTERIAL INFECTION AND THE ROLE OF ANTIBIOTICS. THE PATIENT WISHES TO BE ON ANTIBIOTICS AT THIS TIME. - Differential Dx/Diagnosis Provider Diagnoses: SINUSITIS. VOMITING Discharge - Sign-Out/Discharge Documenting (check all that apply): Patient Departure All imaging exams completed and their final reports reviewed: No Studies - Discharge Plan Condition: Stable Disposition: HOME Prescriptions: Amoxicillin/Clavulanate TAB* [Augmentin TAB 875*] 875 mg PO BID #20 tab Ondansetron ODT TAB* [Zofran 4 MG Odt TAB*] 4 mg PO Q6H PRN #10 tab.odt PRN Reason: Nausea Patient Education Materials: Sinusitis (ED) Forms: *Work Release Referrals: Zoila Bell NP [Primary Care Provider] - Additional Instructions: FOLLOW UP WITH YOUR DOCTOR IF NOT COMPLETELY IMPROVED. GET RECHECKED FOR ANY WORSENING OF YOUR CONDITION OR QUESTIONS OR CONCERNS. - Billing Disposition and Condition Condition: STABLE Disposition: Home
== END 2018-06-29 17:33 | disposition home or self-care (01) ==
LOC: UCCORT 15:43
DX: J32.9 Chronic sinusitis, unspecified (principal); R11.10 Vomiting, unspecified; R73.03 Prediabetes
CPT/HCPCS: 99212; G0463

== ENCOUNTER 2019-08-10 16:44 | Emergency (ER) | payer BC ==
--- OUTSIDE RECORDS SUMMARY | 2019-08-10 17:11 | XMS REPORT | Continuity of Care Document ---
:2000 External Reference #:[id number] Author Name Zoila Bell N.Sukhwinder Address [address] [place] [id number] Problems Active Problems Provider Date Hypothyroidism Zoila Bell, N.P. Onset: 11/27/2014 Depressive disorder Zoila Bell, N.P. Onset: 11/27/2014 Polycystic ovaries Zoila Bell, N.P. Onset: 08/26/2016 Anxiety Zoila Bell, N.P. Onset: 07/15/2017 Mood disorder Zoila Bell, N.P. Onset: 01/14/2018 Social History Type Date Description Comments Sex Unknown Tobacco Use Start: Unknown Patient has never smoked Recreational Drug Use Regularly uses Marijuana Smoking Status Reviewed: 02/22/19 Patient has never smoked Allergies, Adverse Reactions, Alerts Active Allergies Reaction Severity Comments Date Lamictal 01/06/2019 Inactive Allergies NKDA 12/05/2013 Medications Active Medications SIG Qnty Indications Ordering Date Provider Phenazopyridine HCL 1 po tid 6tabs Ray, 06/19/2019 200mg Mashelle, N.P. Tablets Ciprofloxacin HCL 1 by mouth 14tabs Ray, 06/16/2019 500mg twice a day x 7 Mashelle, N.P. Tablets days Aviane take 1 tablet 28tabs Ray, 09/02/2018 0.1-20mg-mcg Tablets by mouth once Mashelle, N.P. daily Victoza 1.8ml qd Unknown 18mg/3ML Solution Pen-Inject Synthroid 1 po qd Unknown 75mcg Tablets [place] Carbonate 1 po bid Unknown 300mg Capsules Quetiapine Fumarate 1 at hs, 1/2 in Unknown 50mg am Tablets Metformin HCL take one tablet Unknown 1000mg Tablets by mouth q day History Medications Marlissa 1 by mouth every 28tabs Zoila Bell, 06/06/2019 - 0.15-30mg-mcg day N.P. 06/06/2019 Tablets Marlissa 1 by mouth every 28tabs Zoila Bell, 06/06/2019 - 0.15-30mg-mcg day N.P. 06/06/2019 Tablets Ciprofloxacin HCL 1 by mouth twice 10tabs Zoila Bell, 05/04/2019 - 500mg a day x 5 days N.P. 06/06/2019 Tablets Ciprofloxacin HCL 1 by mouth twice 10tabs Zoila Bell, 02/14/2019 - 500mg a day x 5 days N.P. 02/22/2019 Tablets Gabapentin Take 2 Capsules 60caps Zoila Bell, 01/16/2019 - 100mg Capsules By Mouth Twice N.P. 03/14/2019 Daily Work Note no work Zoila Bell, 01/16/2019 - 01/16/19-02/07/19 N.P. 02/14/2019 for medical reasons Gabapentin take one capsule 30caps Zoila Bell, 01/10/2019 - 100mg Capsules by mouth bid N.P. 01/16/2019 Medications Administered in Office Medication SIG Qnty Indications Ordering Provider Date CATAR[facility] Nurses Schedule Arvind 09/08/2018 Injection Zoila Martinez, N.P. 09/06/2018 Injection Zoila Martinez, N.P. 03/19/2014 Injection Immunizations CPT Code Status Date Vaccine Lot # [id number] Given 08/15/2018 Influenza Vac, Quadrivalent, Split, 0.5mL Dosage, [id number] Im Use 66170 Given 06/28/2017 Influenza Vac, Quadrivalent, Split, 0.5mL Dosage, [id number] Im Use 71984 Given 05/21/2016 Menactra/Menveo Meningococcal Vaccine [id number] 14938 Given 06/20/2015 Influenza Vac, Quadrivalent, Split, 0.5mL Dosage, [id number] Im Use Q2038 Given 05/20/2011 Fluzone Trivalent Immunization 92282 Given 01/28/2011 HPV Vaccine (Gardasil) 3 Dose Schedule 10717 Given 09/08/2010 HPV Vaccine (Gardasil) 3 Dose Schedule 18313 Given 05/22/2010 HPV Vaccine (Gardasil) 3 Dose Schedule Q2038 Given 07/11/2009 Fluzone Trivalent Immunization 76937 Given 05/22/2009 Meningococcal Immunization 02557 Given 05/22/2009 Tdap (Adacel) Ages 7 And Above Only Q2038 Given 08/16/2008 Fluzone Trivalent Immunization 99392 Given 05/17/2008 Varicella (Chicken Pox) Immunization Q2038 Given 06/15/2007 Fluzone Trivalent Immunization 81749 Given 06/15/2007 Hepatitis A, Ped/Adolescent 2 Dose Schedule 00150 Given 05/07/2006 Hepatitis A, Ped/Adolescent 2 Dose Schedule 80285 Given 07/22/2004 Afluria Or Fluvirin Flu Vac Intramuscular 63348 Given 08/30/2003 Influenza Vaccine Preservative Free 6-35 Months Of Age 77172 Given 07/20/2003 Influenza Vaccine Preservative Free 6-35 Months Of Age 16544 Given 05/04/2003 MMR Virus Immunization 54904 Given 03/02/2003 IPV / Poliomyelitis Immunization 67991 Given 03/02/2003 DTP Immunization 20488 Given 09/12/1999 Hib HbOC Conjugate 4 Dose Schedule 91662 Given 09/12/1999 DTP Immunization 36804 Given 09/12/1999 Varicella (Chicken Pox) Immunization 92720 Given 04/24/1999 MMR Virus Immunization 44480 Given 1998 Hepatitis B Vac Ped/Adolescent 3 Dose Schedule 78587 Given 1998 IPV / Poliomyelitis Immunization 57759 Given 1998 DTP Immunization 53048 Given 1998 Hib HbOC Conjugate 4 Dose Schedule 86122 Given 1998 Hepatitis B Vac Ped/Adolescent 3 Dose Schedule 61059 Given 1998 DTP Immunization 95546 Given 1998 Hib HbOC Conjugate 4 Dose Schedule 37574 Given 1998 IPV / Poliomyelitis Immunization 12912 Given 1998 Hepatitis B Vac Ped/Adolescent 3 Dose Schedule 19991 Given 1998 IPV / Poliomyelitis Immunization 47701 Given 1998 DTP Immunization 52346 Given 1998 Hib HbOC Conjugate 4 Dose Schedule 30981 Refused 06/16/2019 Influenza Vac, Quadrivalent, Split, 0.5mL Dosage, Im Use 89479 Refused 08/04/2018 Influenza Vac, Quadrivalent, Split, 0.5mL Dosage, Im Use 39671 Refused 10/15/2017 Influenza Vac, Quadrivalent, Split, 0.5mL Dosage, Im Use Vital Signs Date Vital Result Comment 06/19/2019 3:41pm Body Temperature 98.1 F Weight 160.38 lb Heart Rate 86 /min BP Systolic 98 mmHg BP Diastolic 62 mmHg O2 % BldC Oximetry 98 % 06/16/2019 9:02am Body Temperature 97.7 F Weight 159.12 lb Heart Rate 93 /min BP Systolic 112 mmHg BP Diastolic 72 mmHg O2 % BldC Oximetry 99 % Results Test Date Facility Test Result H/L Range Note Laboratory 06/16/20 [facility] Microbiology 1 test finding 19 res <SEE NOTE> Laboratory 05/12/20 [facility] Salicylate < 1.7 mg/dL Low 2.8-20.0 2, 3 test finding 19 (315)- - CBS 05/12/20 [facility] White Blood 9.2 K/uL Normal 3.1 -10.7 W/Automated 19 (315)- - Count Diff Red Blood Count 4.82 M/uL Normal 3.90-5.40 Hemoglobin 14.2 gm/dL Normal 11.6-15.8 Hematocrit 41.3 % Normal 36.0-46.1 Mean Cell Volume 85.7 fl Normal 80.9-99.0 Mean Corpuscular HGB 29.5 pg Normal 25.9-32.7 Mean Corpuscular HGB Conc 34.4 g/dL High 30.8-34.3 Platelet Count 269 K/uL Normal 155-360 Red Cell Distri Width SD 39.8 fl Normal 36-47 Red Cell Distri Width %CV 12.8 % Normal 11.7-14.4 Mean Platelet Volume 10.6 fl Normal 8.9-12.4 Neut% 58.7 % Normal 40.4-72.8 Lymph % 32.5 % Normal 20.0-42.0 Towner % 6.9 % Normal 4.3-13.2 Eo% 1.2 % Normal 0.0-6.6 Bas% 0.5 % Normal 0.0-1.1 Immature Grans 0.2 % Normal 0.0-5.0 NRBC % 0.0 /100WBC < 10/ 100 WBC Neut# 5.37 K/uL Normal 1.8-7.0 Lymph # 2.98 K/uL Normal 1.0-4.0 Towner # 0.63 K/uL Normal 0.3-0.9 Eos # 0.11 K/uL Normal 0.0-0.5 Baso # 0.05 K/uL Normal 0.0-0.1 Immature Grans Absolute 0.02 K/uL NRBC # 0.00 K/uL Urinalysis With 05/12/2019 [facility] Urine Color DK YELLOW Yellow Microscopic (315)- - Urine Clarity SL CLOUDY Clear Urine Glucose - Dipstick NEGATIVE mg/dL Negative Urine Bilirubin - Dipstick SMALL Abnormal Negative Urine Ketone 15 mg/dL High Negative Urine Specific [place] >= 1.030 Normal 1.010-1.030 Urine Blood SMALL Abnormal Negative Urine PH 6.0 Low 6.5-7.5 Urine Protein - Dipstick TRACE mg/dL Negative Urine Urobilinogen - Dipstick 0.2 E.U./dL Normal 0.2-1.0 Urine Nitrite - Dipstick NEGATIVE Negative Urine Leuk Esterase NEGATIVE Negative Urine RBC 2-5 rbc/hpf 0-2 Urine WBC 2-5 wbc/hpf 0-7 Urine Epithelial Cells FEW /lpf None Seen Urine Bacteria FEW None Seen Urine Mucus LARGE None Seen Source: URINE, CLEAN CAT <SEE NOTE> 4 Drugs Of Abuse-Urine 05/12/2019 [facility] Amphetamines ( Urine) Negative Screen 7 (315)- - Barbiturates (Urine) Negative Benzodiazepines (Urine) POSITIVE High Cannabinoids (Urine) POSITIVE Abnormal Cocaine Metabolite (Urine) Negative Methadone (Urine) Negative Opiates (Urine) Negative Urine Cutoffs * 5 Laboratory test 05/04/2019 [facility] Microbiology res Abnormal 6 finding <SEE NOTE> Laboratory test 02/14/2019 [facility] Microbiology res 7 finding <SEE NOTE> Laboratory test 01/31/2019 [facility] Microbiology res 8 finding <SEE NOTE> 1 Microbiology results SOURCE Clean Catch Midstream FINAL RESULT No growth 2 MH EVAL 3 THERAPEUTIC RANGE: 15-30 mg/dL POTENTIAL TOXICITY VARIES WITH TIME FROM INGESTION. PLEASE CONSULT APPROPRIATE NOMOGRAM. 4 URINE, CLEAN CATCH 5 URINE SPECIMENS ARE SCREENED AT THE LISTED CUTOFFS DRUG CLASS INITIAL TEST LEVEL Amphetamines 1000 ng/mL Barbiturates 200 ng/mL Benzodiazepines 200 ng/mL Cannabinoids 50 ng/mL Cocaine Metabolite 300 ng/mL Methadone 300 ng/mL Opiates 300 ng/mL Any PRESUMPTIVE POSITIVE findings are UNCONFIRMED. Confirmatory testing is suggested if findings are unexpected. Please contact laboratory if confirmatory testing is desired. SPECIMENS ARE HELD FOR 72 HOURS. 6 Microbiology results SOURCE Clean Catch Midstream COLONY COUNT >100,000 CFU/ML PRELIMINARY RESULT Gram Negative Maurilio. ID & Sensitivity to Follow. 05/05/2019 4:21 PM FINAL RESULT Escherichia coli (Isolate 1) Sensitivity Analysis Isolate 1 --------- AMIKACIN <=16 S AMOXICILLIN/CLAVULANATE <=8/4 S AMPICILLIN <=8 S AMPICILLIN/SULBACTAM <=8/4 S CEFAZOLIN <=2 S CEFEPIME <=8 S CEFOTAXIME <=2 S CEFTRIAXONE <=1 S CEFUROXIME <=4 S CIPROFLOXACIN <=1 S ERTAPENEM <=0.5 S GENTAMYCIN <=2 S IMIPENEM <=1 S LEVOFLOXACIN <=2 S NITROFURANTOIN <=32 S PIPERACILLIN/TAZOBACTAM <=16 S TETRACYCLINE <=4 S TOBRAMYCIN <=4 S TRIMETHOPRIM/SULFAMETHOXAZ <=2/38 S S=Sensitive;I=Indeterminate;R=Resistant 7 Microbiology results SOURCE Clean Catch Midstream FINAL RESULT <10,000 CFU/ML Mixed urethral savannah consistent with contamination. No further workup. 8 Microbiology results SOURCE Clean Catch Midstream FINAL RESULT No growth Procedures Date Code Description Status 06/16/2019 37433 Destruction Benign Lesions Other Than Skin Tags Up To 14 Completed Lesions 06/06/2019 13492 Destruction Benign Lesions Other Than Skin Tags Up To 14 Completed Lesions 01/10/2019 18773 Brief Emotional/Behav Assessment W/ Scoring Doc Per Completed Standard Inst Medical Devices Description No Information Available Encounters Type Date Location Provider Dx Diagnosis Office Visit 06/19/2019 Zoila Cho, R30.0 Dysuria 3:45p N.P. Office Visit 05/04/2019 Zoila Cho R30.0 Dysuria 1:45p N.P. Office Visit 04/05/2019 Zoila Cho, F43.0 Acute stress reaction 9:30a N.P. Office Visit 03/14/2019 Zoila Cho, F41.1 Generalized anxiety 9:30a N.P. disorder F39 Unspecified mood [affective] disorder Office Visit 03/07/2019 10:30a Zoila Cho, F39 Unspecified mood N.P. [affective] disorder F41.1 Generalized anxiety disorder Office Visit 02/22/2019 8:30a Zoila Cho, F41.1 Generalized anxiety N.P. disorder F39 Unspecified mood [affective] disorder Office Visit 02/14/2019 2:15p Zoila Cho, R30.0 Dysuria N.P. Office Visit 02/08/2019 11:00a Zoila Cho F41.1 Generalized anxiety N.P. disorder R23.8 Other skin changes Office Visit 01/31/2019 10:00a Zoila Cho, N.P. R30.0 Dysuria F39 Unspecified mood [affective] disorder F41.1 Generalized anxiety disorder Office Visit 01/16/2019 10:30a Zoila Cho F41.1 Generalized anxiety N.P. disorder F39 Unspecified mood [affective] disorder Office Visit 01/10/2019 11:45a Zoila Cho F41.1 Generalized anxiety N.P. disorder F39 Unspecified mood [affective] disorder Office Visit 01/06/2019 9:30a Zoila Cho F41.1 Generalized anxiety N.P. disorder F39 Unspecified mood [affective] disorder Z13.31 Encounter for screening for depression Assessments Date Code Description Provider 06/19/2019 R30.0 Dysuria Zoila Bell, N.P. 06/16/2019 R30.0 Dysuria Zoila Bell, N.P. 06/16/2019 B07.9 Viral wart, unspecified Zoila Bell, N.P. 06/16/2019 Z28.21 Immunization not carried out because of Zoila Bell, N.P. patient refusal 06/16/2019 R30.0 Dysuria [facility] 06/16/2019 R82.90 Unspecified abnormal findings in urine [facility] 06/06/2019 B07.9 Viral wart, unspecified Zoila Bell, N.P. 05/04/2019 R30.0 Dysuria Zoila Bell, N.P. 05/04/2019 R82.90 Unspecified abnormal findings in urine [facility] 05/04/2019 R30.0 Dysuria [facility] 04/05/2019 F43.0 Acute stress reaction Zoila Bell, N.P. 03/14/2019 F41.1 Generalized anxiety disorder Zoila Bell, N.P. 03/14/2019 F3 Unspecified mood [affective] disorder Zoila Bell, N.P. 03/07/2019 F3 Unspecified mood [affective] disorder Zoila Bell, N.P. 03/07/2019 F41.1 Generalized anxiety disorder Zoila Bell, N.P. 02/22/2019 F41.1 Generalized anxiety disorder Zoila Bell, N.P. 02/22/2019 F39 Unspecified mood [affective] disorder Zoila Bell, N.P. 02/14/2019 R30.0 Dysuria Zoila Bell, N.P. 02/14/2019 R82.90 Unspecified abnormal findings in urine [facility] 02/08/2019 F41.1 Generalized anxiety disorder Zoila Bell, N.P. 02/08/2019 R23.8 Other skin changes Zoila Bell, N.P. 01/31/2019 R30.0 Dysuria Zoila Bell, N.P. 01/31/2019 F39 Unspecified mood [affective] disorder Zoila Bell, N.P. 01/31/2019 F41.1 Generalized anxiety disorder Zoila Bell, N.P. 01/31/2019 R82.90 Unspecified abnormal findings in urine [facility] 01/16/2019 F41.1 Generalized anxiety disorder Zoila Bell, N.P. 01/16/2019 F39 Unspecified mood [affective] disorder Zoila Bell, N.P. 01/10/2019 F41.1 Generalized anxiety disorder Zoila Bell N.P. 01/10/2019 F39 Unspecified mood [affective] disorder Zoila Bell, N.P. 01/06/2019 F41.1 Generalized anxiety disorder Zoila Bell N.P. 01/06/2019 F39 Unspecified mood [affective] disorder Zoila Bell, N.P. 01/06/2019 Z13.31 Encounter for screening for depression Zoila Bell N.P. Plan of Treatment 06/19/2019 - Zoila Bell N.P.R30.0 DysuriaComments:Stop cipro Rx'd pyridium for pain relief. Today's urine dip (personally examined by me) was negativeexcept for trace of bloodpatient willing to see urologist for further evaluationconsider interstitial cystitis, bladder spasmsAllNew Medication: Phenazopyridine HCL 200 mg - 1 po tidReferral:Brunilda Gutierrez NP, Functional Status Description No Information Available Mental Status Description No Information Available Referrals Refer to Reason for Referral Status Appt Date Brunilda Gutierrez NP recurrent dysuria Created [address] [place] [address] [phone] Sarath Wilburn growing bump on outter ear Closed [address] [place] [address] [phone]
--- OUTSIDE RECORDS SUMMARY | 2019-08-10 17:11 | XMS REPORT | Continuity of Care Document ---
:2000 External Reference #:[id number] Author Name Mynor Huitron MD Address [address] [place] [address] Care Team Providers Name Role Phone Zoila Bell NP - Family Care Team Information [facility] [phone] Problems Active Problems Provider Date Bipolar disorder Alice Josue MD Onset: 06/05/2019 Anxiety state Alice Josue MD Onset: 06/05/2019 Social History Type Date Description Comments Sex Unknown ETOH Use Denies alcohol use Tobacco Use Start: Unknown Patient has never smoked Smoking Status Reviewed: 07/28/19 Patient has never smoked Allergies, Adverse Reactions, Alerts Active Allergies Reaction Severity Comments Date Metformin vomiting 02/21/2019 Lamictal rash 02/21/2019 Inactive Allergies NKDA 11/24/2016 Medications Active Medications SIG Qnty Indications Ordering Date Provider Klonopin take 1/2 to 1 tab 15tabs Alice Josue MD 07/10/2019 0.5mg once a day as Tablets needed for anxiety [place] Carbonate take 1 by mouth 2 60caps Alice Josue MD 06/05/2019 times daily 300mg Capsules Metformin HCL ER Take two Tablets 60tabs Rosa A 04/11/2019 By Mouth Daily Raya MEAT PICKLER 500mg Tablets ER With Food 24HR Levothyroxine Sodium 1 by mouth even 45tabs Rosa A 11/05/2017 days alternating Raya MEAT PICKLER 50mcg Tablets with 75mcg Levothyroxine Sodium 1 by mouth every 45tabs Rosa A 11/05/2017 other day, alt Raya, MEAT PICKLER 75mcg Tablets 50mcg BD Pen everyday 100units Rosa A 07/29/2017 Needle/Debbie/Ultra injections Raya, MEAT PICKLER Fine/32G X 4mm 32G X 4 mm Misc Victoza inject 1.8mg sq 9ml Rosa A 02/26/2017 18mg/3ML everyday CORINA Raya Solution Pen-Inject Aviane 1 by mouth every Unknown 0.1-20mg-mcg day Tablets Quetiapine Fumarate 1 to 2 tabs every 60tabs Alice Josue MD evening as needed 50mg Tablets for sleep. Uribel 1 tab by mouth Unknown 118mg Capsules daily. if pelvic floor symptoms worsen you can increase to up to three times a day as needed History Medications Quetiapine Fumarate 1/2 tab in the 30tabs Alice Josue MD 07/10/2019 - 25mg morning as needed 07/24/2019 Tablets for panic attack Topamax 1 tab by mouth 60tabs Alice Josue MD 06/05/2019 - 25mg Tablets twice a day 07/10/2019 Seroquel 1/2 tab in the 45tabs Alice Josue MD 06/05/2019 - 50mg Tablets morning and 1 tab 07/10/2019 by mouth at bedtime Immunizations Description No Information Available Vital Signs Date Vital Result Comment 07/24/2019 9:52am Weight 161.00 lb Weight 73.030 kg BP Systolic 114 mmHg BP Diastolic 68 mmHg Hemoglobin A1C 4.7% done today in office 02/21/2019 9:46am Weight 166.00 lb Weight 75.298 kg BP Systolic 122 mmHg BP Diastolic 66 mmHg Results Test Acquired Date Facility Test Result H/L Range Note Laboratory test 07/24/2019 [facility] TSH 1.43 uIU/mL 0.34- 4.82 finding [phone] T4 - Free 0.94 ng/dL 0.77-1.60 Comprehensive Panel 02/21/2019 [facility] Sodium 141 mmol/L 136 -145 [phone] Potassium 4.3 mmol/L 3.5-5.2 Chloride 107 mmol/L 100-108 Co2 24 mmol/L 21-32 Glucose 81 mg/dL 70-100 BUN 14 mg/dL 7-21 Creatinine 0.8 mg/dL 0.6-1.3 1 Calcium 9.2 mg/dL 8.5-10.8 GFR >60 T Bili 0.6 mg/dL 0.0-1.2 T Protein 6.9 gm/dL 6.4-8.2 Albumin 4.5 gm/dL 3.4-4.8 Alk Phos 70 U/L 40-150 Alt (SGPT) 26 U/L 0-55 Ast (Sgot) 22 U/L 5-37 Laboratory test finding 02/21/2019 [facility] A1c 4.8 % 4.8- 6.0 [phone] TSH 1.27 uIU/mL 0.34-4.82 T4 - Free 1.07 ng/dL 0.77-1.60 1 Normal Kidney Function or Mild Disease - GFR >OR= 60 Chronic Kidney Disease - GFR 15-59 Renal Failure - GFR < 15 GFR not calculated on patients under 18 years of age. Procedures Description No Information Available Medical Devices Description No Information Available Encounters Type Date Location Provider Dx Diagnosis Office Visit 07/24/2019 [facility] E03.9 Hypothyroidism, 9:45a Marli MD unspecified Endocrinology Office Visit 06/05/2019 [facility] Alice Josue MD F41.9 Anxiety disorder, 1:30p unspecified F31.9 Bipolar disorder, unspecified Office Visit 02/21/2019 9:45a [facility] R73.03 Prediabetes Elida & MD [facility] E03.9 Hypothyroidism, unspecified Assessments Date Code Description Provider 07/24/2019 E03.9 Hypothyroidism, unspecified Apc and Endo Draw 07/24/2019 E03.9 Hypothyroidism, unspecified Mynor Huitron MD 07/10/2019 F41.9 Anxiety disorder, unspecified Alice Josue MD 07/10/2019 F31.9 Bipolar disorder, unspecified Alice Josue MD 06/05/2019 F41.9 Anxiety disorder, unspecified Alice Josue MD 06/05/2019 F31.9 Bipolar disorder, kaleigh Josue MD 02/21/2019 E03.9 Hypothyroidism, unspecified Apc and Endo Draw 02/21/2019 R73.03 Prediabetes Mynor Huitron MD 02/21/2019 R73.03 Prediabetes Apc and Endo Draw 02/21/2019 E03.9 Hypothyroidism, unspecified Mynor Huitron MD Plan of Treatment Future Appointment(s):08/17/2019 9:00 am - Alice Josue MD at [facility] Functional Status Description No Information Available Mental Status Description No Information Available Referrals Description No Information Available
--- OUTSIDE RECORDS SUMMARY | 2019-08-10 17:11 | XMS REPORT | Continuity of Care Document ---
:2000 External Reference #:[id number] Author Name Romain Mehta NP Address [address] [facility] [address] [place] [address] Care Team Providers Name Role Phone Zoila Bell N.P. - Family Care Team Information Labels Molder [phone] Problems Description No Information Available Social History Type Date Description Comments Sex Unknown Tobacco Use Reviewed: 07/07/19 Never Smoked Cigarettes Smoking Status Reviewed: 07/07/19 Never Smoked Cigarettes ETOH Use Never used alcohol Allergies, Adverse Reactions, Alerts Active Allergies Reaction Severity Comments Date Lamotrigine Rash Mild 07/06/2019 Medications Active Medications SIG Qnty Indications Ordering Provider Date Uribel take one tablet 60caps Javier R 07/07/2019 118mg Capsules every 6 hours as MD Sushila needed. Cephalexin Take 1 capsule 14caps Unknown 07/06/2019 500mg Capsules (500 mg total) by mouth 2 (two) times a day for 7 days Metronidazole Take 1 tablet 14tabs Unknown 07/06/2019 500mg (500 mg total) Tablets by mouth 2 (two) times a day for 7 days Levothyroxine Sodium Take 75 mcg by Unknown mouth daily 75mcg Tablets Saxenda Inject under the Unknown 18mg/3ML Solution skin daily Pen-Inject Metformin HCL Take 1,000 mg by Unknown 1000mg mouth 2 (two) Tablets times a day with meals Quetiapine Fumarate Take 25 mg by Unknown 25mg mouth nightly Tablets Ladue Carbonate Take 300 mg by Unknown 300mg mouth 3 (three) Tablets times a day Immunizations Description No Information Available Vital Signs Date Vital Result Comment 07/07/2019 2:31pm Height 61 inches 5'1" Weight 165.00 lb Weight 74.844 kg BMI (Body Mass Index) 31.2 kg/m2 BP Systolic 121 mmHg BP Diastolic 79 mmHg Heart Rate 95 /min Body Temperature 98.8 F Post Void Residual ml 11 Bladder Scanner 07/06/2019 2:11am BP Systolic 108 mmHg BP Diastolic 57 mmHg Heart Rate 81 /min Respiratory Rate 18 /min Body Temperature 97.9 F O2 % BldC Oximetry 99 % Results Test Date Facility Test Result H/L Range Note Laboratory test 07/07/2019 Laboratory [facility] Urine Culture SPECIMEN 1 finding CRISTIANA Doty [id number] [address] <SEE [phone] NOTE> 230 Ua Routine 07/07/2019 [facility] Ua Glucose Negative REF TO DR ADDRESS ON ORDER FOR (869)- - Ua Protein Negative Ua Nitrite Negative Ua Leuko Trace Ua Blood Large Ua Color Not Entered Ua Ketones Negative Ua Clarity Not Entered Ua Specific [place] 1.010 1.003-1.030 Ua PH 6.0 5.0-7.5 Ua Bilirubin Negative Ua Urobilinogen 0.2 E.U./dL 0.0-1.0 CBC w/ diff 07/06/2019 N2N/CCD Import WBC 8.6 10*3/uL 4.1 - 11.0 RBC 4.73 10*6/uL 4.00 - 5.40 Hemoglobin 13.8 g/dL 12.0 - 16.0 Hematocrit 41.2 % 36.0 - 47.0 MCV 87.0 fL 80.0 - 95.0 MCH 29.2 pg 27.0 - 32.0 MCHC 33.6 g/dL 32.0 - 36.0 RDW 13.7 % 10.5 - 14.5 Platelets 252 10*3/uL 150 - 450 MPV 8.8 fL 7.1 - 10.7 Neutrophils % 63.5 % 35.0 - 75.0 Lymphocytes Relative 26.8 % 16.0 - 52.0 Monocytes Relative 6.6 % 0.0 - 8.0 Eosinophils Relative 2.5 % 0.0 - 5.0 Basophils Relative 0.6 % 0.0 - 4.0 Neutrophils Absolute 5.4 10*3/uL 1.8 - 7.7 Lymphocytes Absolute 2.3 10*3/uL 1.2 - 4.8 Monocytes Absolute 0.6 10*3/uL 0.0 - 0.8 Eosinophils Man 0.2 10*3/uL 0.0 - 0.5 Basophils Absolute 0.1 10*3/uL 0.0 - 0.2 CBC w/ diff 07/06/2019 N2N/CCD Import WBC 8.6 10*3/uL 4.1 - 11.0 RBC 4.73 10*6/uL 4.00 - 5.40 Hemoglobin 13.8 g/dL 12.0 - 16.0 Hematocrit 41.2 % 36.0 - 47.0 MCV 87.0 fL 80.0 - 95.0 MCH 29.2 pg 27.0 - 32.0 MCHC 33.6 g/dL 32.0 - 36.0 RDW 13.7 % 10.5 - 14.5 Platelets 252 10*3/uL 150 - 450 MPV 8.8 fL 7.1 - 10.7 Neutrophils % 63.5 % 35.0 - 75.0 Lymphocytes Relative 26.8 % 16.0 - 52.0 Monocytes Relative 6.6 % 0.0 - 8.0 Eosinophils Relative 2.5 % 0.0 - 5.0 Basophils Relative 0.6 % 0.0 - 4.0 Neutrophils Absolute 5.4 10*3/uL 1.8 - 7.7 Lymphocytes Absolute 2.3 10*3/uL 1.2 - 4.8 Monocytes Absolute 0.6 10*3/uL 0.0 - 0.8 Eosinophils Man 0.2 10*3/uL 0.0 - 0.5 Basophils Absolute 0.1 10*3/uL 0.0 - 0.2 CBC w/ diff 07/06/2019 N2N/CCD Import WBC 8.6 10*3/uL 4.1 - 11.0 RBC 4.73 10*6/uL 4.00 - 5.40 Hemoglobin 13.8 g/dL 12.0 - 16.0 Hematocrit 41.2 % 36.0 - 47.0 MCV 87.0 fL 80.0 - 95.0 MCH 29.2 pg 27.0 - 32.0 MCHC 33.6 g/dL 32.0 - 36.0 RDW 13.7 % 10.5 - 14.5 Platelets 252 10*3/uL 150 - 450 MPV 8.8 fL 7.1 - 10.7 Neutrophils % 63.5 % 35.0 - 75.0 Lymphocytes Relative 26.8 % 16.0 - 52.0 Monocytes Relative 6.6 % 0.0 - 8.0 Eosinophils Relative 2.5 % 0.0 - 5.0 Basophils Relative 0.6 % 0.0 - 4.0 Neutrophils Absolute 5.4 10*3/uL 1.8 - 7.7 Lymphocytes Absolute 2.3 10*3/uL 1.2 - 4.8 Monocytes Absolute 0.6 10*3/uL 0.0 - 0.8 Eosinophils Man 0.2 10*3/uL 0.0 - 0.5 Basophils Absolute 0.1 10*3/uL 0.0 - 0.2 Poct Urine HCG 07/06/2019 N2N/CCD Import Preg Test, Ur Negative Negative Poct Urine HCG 07/06/2019 N2N/CCD Import Preg Test, Ur Negative Negative Poct Urine HCG 07/06/2019 N2N/CCD Import Preg Test, Ur Negative Negative Poct Clinitek Urine 07/06/2019 N2N/CCD Import Poc Urine Color Yellow Dipstick Poc Urine Appearance Slightly Cloudy Poc Urine Specific [place] 1.025 1.003 - 1.030 Poc Urine pH 5.5 5.0 - 7.5 Poc Urine Leuk Esterase 1+ Abnormal Negative Poc Urine Nitrite Negative Negative Poc Urine Protein 1+ Abnormal Negative mg/dL Poc Urine Glucose Negative Negative mg/dL Poc Urine Ketone Negative Negative mg/dL Poc Urine Urobilinogen 0.2 EU/dL 0.2 - 1.0 Poc Urine Bilirubin Negative Negative Poc Urine Blood Hgb 2+ Abnormal Negative Poct Clinitek Urine Dipstick 07/06/2019 N2N/CCD Import Poc Urine Color Yellow Poc Urine Appearance Slightly Cloudy Poc Urine Specific [place] 1.025 1.003 - 1.030 Poc Urine pH 5.5 5.0 - 7.5 Poc Urine Leuk Esterase 1+ Abnormal Negative Poc Urine Nitrite Negative Negative Poc Urine Protein 1+ Abnormal Negative mg/dL Poc Urine Glucose Negative Negative mg/dL Poc Urine Ketone Negative Negative mg/dL Poc Urine Urobilinogen 0.2 EU/dL 0.2 - 1.0 Poc Urine Bilirubin Negative Negative Poc Urine Blood Hgb 2+ Abnormal Negative Poct Clinitek Urine Dipstick 07/06/2019 N2N/CCD Import Poc Urine Color Yellow Poc Urine Appearance Slightly Cloudy Poc Urine Specific [place] 1.025 1.003 - 1.030 Poc Urine pH 5.5 5.0 - 7.5 Poc Urine Leuk Esterase 1+ Abnormal Negative Poc Urine Nitrite Negative Negative Poc Urine Protein 1+ Abnormal Negative mg/dL Poc Urine Glucose Negative Negative mg/dL Poc Urine Ketone Negative Negative mg/dL Poc Urine Urobilinogen 0.2 EU/dL 0.2 - 1.0 Poc Urine Bilirubin Negative Negative Poc Urine Blood Hgb 2+ Abnormal Negative Vaginitis Direct - 07/06/2019 N2N/CCD Import Specimen Vaginal Loan/BV/Trich Description Specimen Results: See Note 2 Report Status 07/06/2019 Final Vaginitis Direct - 07/06/2019 N2N/CCD Import Specimen Vaginal Loan/BV/Trich Description Specimen Results: See Note 3 Report Status 07/06/2019 Final Vaginitis Direct - 07/06/2019 N2N/CCD Import Specimen Vaginal Loan/BV/Trich Description Specimen Results: See Note 4 Report Status 07/06/2019 Final Poct I-Stat Chem 8 07/05/2019 N2N/Red-rabbit Import Poc Sodium 140 136 - 145 Mmol/L Poc Potassium 3.8 3.6 - 5.2 Mmol/L Poc Chloride 104 100 - 108 Mmol/L Poc Co2 24 22 - 31 Mmol/L Poc Anion Gap 12 7 - 16 Mmol/L Poc BUN 7 7 - 24 MG/DL Poc Creatinine 0.7 0.6 - 1.0 MG/DL Poc BUN/Creatinine Ratio 10.0 10.0 - 20.0 Ratio Poc Glucose (iStat) 90 70 - 99 MG/DL Poc Ionized Calcium 4.9 4.6 - 5.3 MG/DL Poc GFR >60 >59 ml/min/1.73m2 Poc GFR () >60 >59 ml/min/1.73m2 Poc GFR Interpretation ------ Poc Hematocrit 41 % 36.0 - 47.0 Performed by: Performed By [facility] Clinical Staff Poct I-Stat Chem 8 07/05/2019 N2N/Red-rabbit Import Poc Sodium 140 136 - 145 Mmol/L Poc Potassium 3.8 3.6 - 5.2 Mmol/L Poc Chloride 104 100 - 108 Mmol/L Poc Co2 24 22 - 31 Mmol/L Poc Anion Gap 12 7 - 16 Mmol/L Poc BUN 7 7 - 24 MG/DL Poc Creatinine 0.7 0.6 - 1.0 MG/DL Poc BUN/Creatinine Ratio 10.0 10.0 - 20.0 Ratio Poc Glucose (iStat) 90 70 - 99 MG/DL Poc Ionized Calcium 4.9 4.6 - 5.3 MG/DL Poc GFR >60 >59 ml/min/1.73m2 Poc GFR () >60 >59 ml/min/1.73m2 Poc GFR Interpretation ------ Poc Hematocrit 41 % 36.0 - 47.0 Performed by: Performed By [facility] Clinical Staff Poct I-Stat Chem 8 07/05/2019 N2N/CCD Import Poc Sodium 140 136 - 145 Mmol/L Poc Potassium 3.8 3.6 - 5.2 Mmol/L Poc Chloride 104 100 - 108 Mmol/L Poc Co2 24 22 - 31 Mmol/L Poc Anion Gap 12 7 - 16 Mmol/L Poc BUN 7 7 - 24 MG/DL Poc Creatinine 0.7 0.6 - 1.0 MG/DL Poc BUN/Creatinine Ratio 10.0 10.0 - 20.0 Ratio Poc Glucose (iStat) 90 70 - 99 MG/DL Poc Ionized Calcium 4.9 4.6 - 5.3 MG/DL Poc GFR >60 >59 ml/min/1.73m2 Poc GFR () >60 >59 ml/min/1.73m2 Poc GFR Interpretation ------ Poc Hematocrit 41 % 36.0 - 47.0 Performed by: Performed By [facility] Clinical Staff 1 SPECIMEN DESCRIPTION MIDSTREAM URINE,CLEAN CATCH CULTURE RESULTS NO GROWTH REPORT STATUS FINAL 07/09/2019 2 Negative For Trichomonas Vaginalis By Dna Probepositive For Gardnerella Vaginalis By Dna Probenegative For Loan Species By Dna Probe(Note) Performed AT [address] [place] [address] 3 Negative For Trichomonas Vaginalis By Dna Probepositive For Gardnerella Vaginalis By Dna Probenegative For Loan Species By Dna Probe(Note) Performed AT [address] [place] [address] 4 Negative For Trichomonas Vaginalis By Dna Probepositive For Gardnerella Vaginalis By Dna Probenegative For Loan Species By Dna Probe(Note) Performed AT [address] [place] [address] Procedures Date Code Description Status 07/07/2019 87822 Bladder Scan, Post Voiding Residual Urine Completed 07/06/[address] Abdomen/Pelvis With Contrast Completed Medical Devices Description No Information Available Encounters Description No Information Available Assessments Date Code Description Provider 07/07/2019 R39.15 Urgency of urination Romain Mehta NP 07/07/2019 R39.14 Feeling of incomplete bladder emptying Romain Mehta NP 07/07/2019 Z87.440 Personal history of urinary (tract) infections Romain Mehta NP Plan of Treatment Future Appointment(s):07/25/2019 3:30 pm - Valentina Reese MD at [place]/ A.MBrian Edoufhx22/11/2019 - Romain Mehta, NPR39.15 Urgency of urinationComments:We discussed the constellation of her symptoms. We discussed pelvic floor dysfunction versus interstitial cystitis including the signs and symptoms. For now, I recommended pelvic floor dysfunction. I also prescribed Uribel to help with her dysuria. Side effect profile reviewed. We also discussedcontinuation of warm packs to the perineum and pelvic area 30 minutes 3 times a day or taking warm baths 2-3 times daily. I also gave her information on an IC handout and provided her with generic pelvic floor exercises. We also discussed a potential cystoscopy in the future if her symptoms do not improve with conservative management.She only wants to see a female provider. She is scheduled to see Dr. Reese in the next couple of weeks. She would like to keep her appointment scheduled. She may change her appointment to see Dr. Zuñiga's instead since the [facility] location is closer to their home. She will contact me next week if she would like to proceed with pelvic floor physical therapy and at that time I will make that referral for her with follow-up for reevaluation.Follow up:as [id number] Feeling of incomplete bladder emptyingComments:She is emptying her bladder in the office today. She was reassured by this.Z87.440 Personal history of urinary (tract) infectionsComments:She has a history of urinary tract infections. She had 2 symptomatic UTIs in 2019. I only have access to one positive urine culture in April in which she was treated for with complete resolution of her symptoms. She had a recent CT abdomen pelvis without contrast that was unremarkable. Urine sentfor culture. I will contact her next week regarding her culture results and treat accordingly. Sheis aware if she develops any fevers or chills over the weekend to go the ER for evaluation. Functional Status Description No Information Available Mental Status Description No Information Available Referrals Description No Information Available
--- OUTSIDE RECORDS SUMMARY | 2019-08-10 17:11 | XMS REPORT | Continuity of Care Document ---
:2000 Author Organization [facility] Care Team Providers Name Role Phone RAUL SAINZ Admitting Physician RAUL SAINZ Attending Physician MARLO MACDONALD Consulting Physician Allergies and Intolerances No Allergy Data in the System Medications RxNorm Medication Dose Route Instructions Start End Date Status Date 19299 levothyroxine oral orally every day Active 6809 Metformin 1000 mg oral orally 2 times per Active day 8640 Prednisone (Prednisone 60 mg Active PO x 3 days then, Prednisone 40 mg PO x3 days then, Prednisone 20 mg PO x 3days) 38332 Sertraline oral orally every day Active Victoza subcutaneous subcutaneously Active every day Medications At Time Of Discharge RxNorm Medication Dose Route Instructions Start End Date Status Date 49954 levothyroxine oral orally every day Active 6809 Metformin 1000 mg oral orally 2 times per Active day 8640 Prednisone (Prednisone 60 mg Active PO x 3 days then, Prednisone 40 mg PO x3 days then, Prednisone 20 mg PO x 3days) 88803 Sertraline oral orally every day Active Victoza subcutaneous subcutaneously Active every day Problems Code Code System Problem Name Start Date End Date Status 68088586 SNOMED-CT Hypothyroidism U Active 46808217 SNOMED-CT Diabetes mellitus type 1 U Active 95162050 SNOMED-CT Depressive disorder U Active Procedures No data in the system Results Laboratory Results Order: T4 - FREE Specimen Source: Body Site: Legend: (G,H) = High, (GG,HH,CH,#H) = Above High Threshold, (#,L) = Low, ( ##,CL,#L,LL) = Below Low Threshold, (C,CC,CA,#A,A) = Abnormal LOINC Test Result Flag Range Units Date 3024-7 1T4 Free SerPl-mCnc 0.94 0.77-1.60 ng/dL 07/24/2019 10:16 Performing Lab Footnotes:[facility] - [id number] - [address] [place] [address] TODD [id number] Order: TSH Specimen Source: Body Site: Legend: (G,H) = High, (GG,HH,CH, #H) = Above High Threshold, (#,L) = Low, (##,CL,#L,LL) = Below Low Threshold, (C ,CC,CA,#A,A) = Abnormal LOINC Test Result Flag Range Units Date 3016-3 1TSH SerPl-aCnc 1.43 0.34-4.82 uIU/mL 07/24/2019 10:16 Performing Lab Footnotes:[facility] - [id number] - [address] [place] [address] TODD SIGALAOMMaritza Social History Code Code System Social History Description Dates Observed Observation 743601619 SNOMED CT Current Smoking Unknown if ever Status smoked UNK AdministrativeGender Sex Assigned At Unknown Vital Signs No data in the system Goals Section No data in the system Health Concerns No data in the systemEncounter Diagnosis Date Code Code System Diagnosis Status E03.9 ICD10 HYPOTHYROIDISM UNSPECIFIED Active Advance Directives PT STATES NO ADVANCE DIRECTIVES Directive Type Effective Date Procedure Tech Notes Supporting Document Name Address Phone No Directive Type 06/30/2017 1:38:00 Not Specified Not Specified Not Specified None No specified PM *RHIO - CONSENT IS YES Directive Type Effective Date Procedure Tech Notes Supporting Document Name Address Phone No Directive Type 06/30/2017 1:02:31 Not Specified Not Specified Not Specified None No specified PM Encounters Encounter Diagnosis Location Date HYPOTHYROIDISM UNSPECIFIED [facility] 07/24/2019 Family History Family history not obtained Functional Status No data in the system Immunizations No data in the system Medical Equipment No data in the system Mental Status No data in the system Assessment and Plan Assessments No data in the systemPlan Of Treatment No data in the systemPending Tests No data in the system Hospital Discharge Instructions No data in the system Reason for Visit No data in the system
--- OUTSIDE RECORDS SUMMARY | 2019-08-10 17:11 | XMS REPORT | Continuity of Care Document ---
:2000 External Reference #:[id number] Author Name Zoila Bell NBrian Address [address] [place] [id number] Problems Active Problems Provider Date Hypothyroidism Zoila Bell N.PMora Onset: 11/27/2014 Depressive disorder Zoila Bell N.PMora Onset: 11/27/2014 Polycystic ovaries Zoila Bell, N.PMora Onset: 08/26/2016 Anxiety Zoila Bell N.PMora Onset: 07/15/2017 Mood disorder Zoila Bell N.PMora Onset: 01/14/2018 Social History Type Date Description Comments Sex Unknown Tobacco Use Start: Unknown Patient has never smoked Recreational Drug Use Regularly uses Marijuana Smoking Status Reviewed: 02/22/19 Patient has never smoked Allergies, Adverse Reactions, Alerts Active Allergies Reaction Severity Comments Date Lamictal 01/06/2019 Inactive Allergies NKDA 12/05/2013 Medications Active Medications SIG Qnty Indications Ordering Provider Date Ciprofloxacin HCL 1 by mouth 14tabs Zoila Bell, 06/16/2019 500mg twice a day x 7 N.P. Tablets days Aviane take 1 tablet 28tabs Zoila Bell, 09/02/2018 0.1-20mg-mcg Tablets by mouth once N.P. daily Victoza 1.8ml qd Unknown 18mg/3ML Solution Pen-Inject Synthroid 1 po qd Unknown 75mcg Tablets [place] Carbonate 1 po bid Unknown 300mg Capsules Quetiapine Fumarate 1 at hs, 1/2 in Unknown 50mg am Tablets Metformin HCL take one tablet Unknown 1000mg by mouth q day Tablets History Medications Marlissa 1 by mouth every [...] Medication SIG Qnty Indications Ordering Provider Date PPD Nurses Schedule Arvind 09/08/2018 Injection PPD Zoila Bell, N.P. 09/06/2018 Injection PPD Zoila Bell, N.P. 03/19/2014 Injection Immunizations CPT Code Status Date Vaccine Lot # [id number] Given 08/15/2018 Influenza Vac, Quadrivalent, Split, 0.5mL Dosage, [id number] Im Use 92185 Given 06/28/2017 Influenza Vac, Quadrivalent, Split, 0.5mL Dosage, [id number] Im Use 77445 Given 05/21/2016 Menactra/Menveo Meningococcal Vaccine [id number] 92493 Given 06/20/2015 Influenza Vac, Quadrivalent, Split, 0.5mL Dosage, [id number] Im Use Q2038 Given 05/20/2011 Fluzone Trivalent Immunization 75500 Given 01/28/2011 HPV Vaccine (Gardasil) 3 Dose Schedule 86001 Given 09/08/2010 HPV Vaccine (Gardasil) 3 Dose Schedule 62548 Given 05/22/2010 HPV Vaccine (Gardasil) 3 Dose Schedule Q2038 Given 07/11/2009 Fluzone Trivalent Immunization 06543 Given 05/22/2009 Meningococcal Immunization 45275 Given 05/22/2009 Tdap (Adacel) Ages 7 And Above Only Q2038 Given 08/16/2008 Fluzone Trivalent Immunization 65522 Given 05/17/2008 Varicella (Chicken Pox) Immunization Q2038 Given 06/15/2007 Fluzone Trivalent Immunization 60445 Given 06/15/2007 Hepatitis A, Ped/Adolescent 2 Dose Schedule 84844 Given 05/07/2006 Hepatitis A, Ped/Adolescent 2 Dose Schedule 99179 Given 07/22/2004 Afluria Or Fluvirin Flu Vac Intramuscular 67715 Given 08/30/2003 Influenza Vaccine Preservative Free 6-35 Months Of Age 23162 Given 07/20/2003 Influenza Vaccine Preservative Free 6-35 Months Of Age 28532 Given 05/04/2003 MMR Virus Immunization 42574 Given 03/02/2003 IPV / Poliomyelitis Immunization 09765 Given 03/02/2003 DTP Immunization 41634 Given 09/12/1999 Hib HbOC Conjugate 4 Dose Schedule 18755 Given 09/12/1999 DTP Immunization 78790 Given 09/12/1999 Varicella (Chicken Pox) Immunization 42285 Given 04/24/1999 MMR Virus Immunization 76593 Given 1998 Hepatitis B Vac Ped/Adolescent 3 Dose Schedule 73745 Given 1998 IPV / Poliomyelitis Immunization 13682 Given 1998 DTP Immunization 03912 Given 1998 Hib HbOC Conjugate 4 Dose Schedule 99704 Given 1998 Hepatitis B Vac Ped/Adolescent 3 Dose Schedule 67420 Given 1998 DTP Immunization 21132 Given 1998 Hib HbOC Conjugate 4 Dose Schedule 98347 Given 1998 IPV / Poliomyelitis Immunization 60395 Given 1998 Hepatitis B Vac Ped/Adolescent 3 Dose Schedule 86033 Given 1998 IPV / Poliomyelitis Immunization 01788 Given 1998 DTP Immunization 58916 Given 1998 Hib HbOC Conjugate 4 Dose Schedule 64243 Refused 06/16/2019 Influenza Vac, Quadrivalent, Split, 0.5mL Dosage, Im Use 48515 Refused 08/04/2018 Influenza Vac, Quadrivalent, Split, 0.5mL Dosage, Im Use 58162 Refused 10/15/2017 Influenza Vac, Quadrivalent, Split, 0.5mL Dosage, Im Use Vital Signs Date Vital Result Comment 06/16/2019 9:02am Body Temperature 97.7 F Weight 159.12 lb Heart Rate 93 /min BP Systolic 112 mmHg BP Diastolic 72 mmHg O2 % BldC Oximetry 99 % 06/06/2019 10:26am Body Temperature 98.8 F Weight 162.00 lb Heart Rate 76 /min BP Systolic 122 mmHg BP Diastolic 82 mmHg O2 % BldC Oximetry 99 % Results Test Date Facility Test Result H/L Range Note Laboratory test [place] Urine Culture <pending> finding 9 Laboratory test [facility] Salicylate < 1.7 Low 2.8-20.0 1, 2 finding 9 (315)- - mg/dL CBS W/Automated [facility] White Blood 9.2 K/ uL Normal 3.1-10.7 Diff 9 (315)- - Count Red Blood Count 4.82 M/uL Normal 3.90-5.40 [...] 40.4-72.8 Lymph % 32.5 % Normal 20.0-42.0 [place] % 6.9 % Normal 4.3-13.2 Eo% 1.2 % Normal 0.0-6.6 Bas% 0.5 % Normal 0.0-1.1 Immature Grans 0.2 % Normal 0.0-5.0 NRBC % 0.0 /100WBC < 10/ 100 WBC Neut# 5.37 K/uL Normal 1.8-7.0 Lymph # 2.98 K/uL Normal 1.0-4.0 [place] # 0.63 K/uL Normal 0.3-0.9 Eos # 0.11 K/uL Normal 0.0-0.5 Baso # 0.05 K/uL Normal 0.0-0.1 Immature Grans Absolute 0.02 K/uL NRBC # 0.00 K/uL Urinalysis With 05/12/2019 [facility] Urine Color DK YELLOW Yellow Microscopic (315)- - Urine Clarity SL CLOUDY Clear Urine Glucose - Dipstick NEGATIVE mg/dL Negative Urine Bilirubin - Dipstick SMALL Abnormal Negative Urine Ketone 15 mg/dL High Negative Urine Specific [place] >= 1.030 Normal 1.010-1.030 Urine Blood SMALL [...] Seen Source: URINE, CLEAN CAT <SEE NOTE> 3 Drugs Of Abuse-Urine 05/12/2019 [facility] Amphetamines ( Urine) Negative Screen 7 (315)- - Barbiturates (Urine) Negative Benzodiazepines (Urine) POSITIVE High Cannabinoids (Urine) POSITIVE Abnormal Cocaine Metabolite (Urine) Negative Methadone (Urine) Negative Opiates (Urine) Negative Urine Cutoffs * 4 Laboratory test 05/04/2019 [facility] Urine Culture Microbiology res Abnormal 5 finding <SEE NOTE> Laboratory test 02/14/2019 [facility] Urine Culture Microbiology res 6 finding <SEE NOTE> Laboratory test 01/31/2019 [facility] Urine Culture Microbiology res 7 finding <SEE NOTE> 1 MH EVAL 2 THERAPEUTIC RANGE: 15-30 mg/dL POTENTIAL TOXICITY VARIES WITH TIME FROM INGESTION. PLEASE CONSULT APPROPRIATE NOMOGRAM. 3 URINE, CLEAN CATCH 4 URINE SPECIMENS ARE SCREENED AT THE LISTED CUTOFFS DRUG CLASS INITIAL TEST LEVEL Amphetamines 1000 ng/mL Barbiturates 200 ng/mL Benzodiazepines 200 ng/mL Cannabinoids 50 ng/mL Cocaine Metabolite 300 ng/mL Methadone 300 ng/mL Opiates 300 ng/mL Any PRESUMPTIVE POSITIVE findings are UNCONFIRMED. Confirmatory testing is suggested if findings are unexpected. Please contact laboratory if confirmatory testing is desired. SPECIMENS ARE HELD FOR 72 HOURS. 5 Microbiology results SOURCE Clean Catch Midstream COLONY [...] TOBRAMYCIN <=4 S TRIMETHOPRIM/SULFAMETHOXAZ <=2/38 S S=Sensitive;I=Indeterminate;R=Resistant 6 Microbiology results SOURCE Clean Catch Midstream FINAL RESULT <10,000 CFU/ML Mixed urethral savannah consistent with contamination. No further workup. 7 Microbiology results SOURCE Clean Catch Midstream FINAL RESULT No growth Procedures Date Code Description Status 06/16/2019 38563 Destruction Benign Lesions Other Than Skin Tags Up To 14 Completed Lesions 06/06/2019 23116 Destruction Benign Lesions Other Than Skin Tags Up To 14 Completed Lesions 01/10/2019 69299 Brief Emotional/Behav Assessment W/ Scoring Doc Per Completed Standard Inst Medical Devices Description No Information Available Encounters Type Date Location Provider Dx Diagnosis Office Visit 05/04/2019 Zoila Cho, R30.0 Dysuria 1:45p N.P. Office Visit 04/05/2019 [...] Dysuria N.P. Office Visit 02/08/2019 11:00a Zoila Cho, F41.1 Generalized anxiety N.P. disorder R23.8 Other skin changes Office Visit 01/31/2019 10:00a Zoila Cho, N.P. R30.0 Dysuria F39 Unspecified mood [affective] disorder F41.1 Generalized anxiety disorder Office Visit 01/16/2019 10:30a Zoila Cho F41.1 Generalized anxiety N.P. disorder F39 Unspecified mood [affective] disorder Office Visit 01/10/2019 11:45a Zoila Cho, F41.1 Generalized anxiety N.P. disorder F39 Unspecified mood [affective] disorder Office Visit 01/06/2019 9:30a Zoila Cho, F41.1 Generalized anxiety N.P. disorder F39 Unspecified mood [affective] disorder Z13.31 Encounter for screening for depression Assessments Date Code Description Provider 06/16/2019 R30.0 Dysuria Zoila Bell, N.P. 06/16/2019 B07.9 Viral wart, unspecified Zoila Bell, N.P. 06/16/2019 Z28.21 Immunization not carried out because of Zoila Bell, N.P. patient refusal 06/06/2019 B07.9 Viral wart, unspecified Zoila Bell, [...] Bell, N.P. 02/22/2019 F41.1 Generalized anxiety disorder Jory Bellle, N.P. 02/22/2019 F3 Unspecified mood [affective] disorder Zoila Bell, N.P. 02/14/2019 R30.0 Dysuria Zoila Bell, N.P. 02/14/2019 R82.90 Unspecified abnormal findings in urine [facility] 02/08/2019 F41.1 Generalized anxiety disorder Zoila Bell, N.P. 02/08/2019 R23.8 Other skin changes Zoila Bell, N.P. 01/31/2019 R30.0 Dysuria Zoila Bell, N.P. 01/31/2019 F3 Unspecified mood [affective] disorder Zoila Bell, N.P. 01/31/2019 F41.1 Generalized anxiety disorder Zoila Bell, N.P. 01/31/2019 R82.90 Unspecified abnormal findings in urine [facility] 01/16/2019 F41.1 Generalized anxiety disorder Zoila Bell, N.P. 01/16/2019 F3 Unspecified mood [affective] disorder Zoila Bell, N.P. 01/10/2019 F41.1 Generalized anxiety disorder Zoila Bell, N.P. 01/10/2019 F3 Unspecified mood [affective] disorder Zoila Bell, N.P. 01/06/2019 F41.1 Generalized anxiety disorder Zoila Bell, N.P. 01/06/2019 F3 Unspecified mood [affective] disorder Zoila Bell, N.P. 01/06/2019 Z13.31 Encounter for screening for depression Zoila Bell, N.P. Plan of Treatment 06/16/2019 - Zoila Bell N.PMoraR30.0 DysuriaComments:drink plenty of fluids , f/u urine culturestart cipro as rx'd given frequency of UTI's, may consider post coital prophalactic antibiotics after culture lebuvzntV66.9 Viral wart, unspecifiedComments:keep area clean and dryreport if any signs of infection occur of return in 10 daysZ28.21 Immunization not carried out because of patient refusalComments:patient counseled about benefits of receiving flu vaccinedeclines at this time for non-specific reasonAllNew Medication: Ciprofloxacin HCL 500 mg - 1 by mouth twice a day x 7 days Functional Status Description No Information Available Mental Status Description No Information Available Referrals Refer to Reason for Referral Status Appt Date Sarath Wilburn growing bump on outter ear Closed [address] [place] [address] [phone]
[2019-08-10 17:20] VITALS: BP 114/75
--- NOTE | 2019-08-10 17:37 | UC ---
Complaint Female HPI - HPI Summary HPI Summary: Pt presents with c/o urinary frequency, urgency, dysuria and hematuria X 3 days. Pt take Uribel for Interstitial Cystitis - History Of Current Complaint Stated Complaint: URINARY Time Seen by Provider: 08/10/19 17:13 Hx Obtained From: Patient Hx Last Menstrual Period: 08/01/19 ?: No Onset/Duration: Sudden Onset, Lasting Days, Still Present Timing: Constant Severity Initially: Mild Severity Currently: Mild Pain Intensity: 0 Character: Dull, Burning Aggravating Factor(s): Urination Alleviating Factor(s): Nothing Associated Signs And Symptoms: Positive: Negative - Risk Factors Ectopic Risk Factor: Negative Ovarian Torsion Risk Factor: Reproductive Age - Allergies/Home Medications Allergies/Adverse Reactions: Allergies Allergy/AdvReac Type Severity Reaction Status Date / Time lamotrigine [From Lamictal] Allergy Rash Verified 08/10/19 17:11 Home Medications: Home Medications Levonorgestrel-Ethin Estradiol [Levonest-28 Tablet] 1 tab PO DAILY 08/10/19 [ History Confirmed 08/10/19] Liraglutide (NF) [Victoza (NF)] 1.8 ml SUBCUT DAILY 08/10/19 [History Confirmed 08/10/19] [place] Carbonate [[place] Carbonate 300 mg cap] 1 tab PO BID 08/10/19 [History Confirmed 08/10/19] QUEtiapine XR TAB* [Seroquel Xr 50 MG TAB*] 1 tab PO QPM 08/10/19 [History Confirmed 08/10/19] PMH/Surg Hx/FS Hx/Imm Hx Previously Healthy: Yes - Surgical History Surgical History: None - Family History Known Family History: Negative: Diabetes, Blood Disorder - Social History Occupation: Employed Full-time Lives: With Family Alcohol Use: Rare Substance Use Type: None Substance Use Comment - Amount & Last Used: nightly Smoking Status (MU): Former Smoker Type: eCigarettes Have You Smoked in the Last Year: Yes When Did the Patient Quit Smoking/Using Tobacco: April 2019 - Immunization History Most Recent Influenza Vaccination: 07/2013 Most Recent Pneumonia Vaccination: never Vaccination Up to Date: Yes Review of Systems All Other Systems Reviewed And Are Negative: Yes Constitutional: Positive: Negative Skin: Positive: Negative Eyes: Positive: Negative ENT: Positive: Negative Respiratory: Positive: Negative Cardiovascular: Positive: Negative Gastrointestinal: Positive: Negative Genitourinary: Positive: Dysuria, Hematuria, Frequency, Urgency Motor: Positive: Negative Neurovascular: Positive: Negative Musculoskeletal: Positive: Negative Neurological: Positive: Negative Psychological: Positive: Negative Is Patient Immunocompromised?: No Physical Exam Triage Information Reviewed: Yes Appearance: Well-Appearing Vital Signs: Initial Vital Signs Temp 98 F 08/10/19 17:14 Pulse 78 08/10/19 17:14 Resp 16 08/10/19 17:14 BP 114/75 08/10/19 17:14 Pulse Ox 100 08/10/19 17:14 Vital Signs Reviewed: Yes Eye Exam: Normal ENT Exam: Normal Dental Exam: Normal Neck exam: Normal Respiratory Exam: Normal Cardiovascular Exam: Normal Abdominal Exam: Normal Abdomen Description: Positive: Nontender Musculoskeletal Exam: Normal Neurological Exam: Normal Psychological Exam: Normal Skin Exam: Normal Complaint Female Dx - Course Course Of Treatment: Unable to do UA due to use of Uribel. - Differential Dx/Diagnosis Differential Diagnosis/HQI/PQRI: Urinary Tract Infection Provider Diagnosis: Dysuria Discharge ED - Sign-Out/Discharge Documenting (check all that apply): Patient Departure All imaging exams completed and their final reports reviewed: No Studies - Discharge Plan Condition: Stable Disposition: HOME Prescriptions: Sulfamethox/Trimethoprim DS* [Bactrim DS 800/160 TAB*] 1 tab PO Q12H #14 tab Patient Education Materials: Dysuria (ED) Referrals: Zoila Bell NP [Primary Care Provider] - If Needed - Billing Disposition and Condition Condition: STABLE Disposition: Home
--- NOTE | 2019-08-14 07:14 | UC ---
- Progress Note Progress Note: +E coli sensitive to bactrim on bactrim no change rohan Course/Dx - Diagnoses Provider Diagnoses: Dysuria Discharge ED - Sign-Out/Discharge Documenting (check all that apply): Post-Discharge Follow Up All imaging exams completed and their final reports reviewed: No Studies - Discharge Plan Condition: Stable Disposition: HOME Prescriptions: Sulfamethox/Trimethoprim DS* [Bactrim DS 800/160 TAB*] 1 tab PO Q12H #14 tab Patient Education Materials: Dysuria (ED) Referrals: Zoila Bell NP [Primary Care Provider] - If Needed - Billing Disposition and Condition Condition: STABLE Disposition: Home
== END 2019-08-10 17:43 | disposition home or self-care (01) ==
LOC: UCCORT 16:44
DX: R30.0 Dysuria (principal); R31.9 Hematuria, unspecified; R39.15 Urgency of urination; Z88.8 Allergy status to other drugs, medicaments and biological substances; Z87.891 Personal history of nicotine dependence
CPT/HCPCS: 87077; 87086; 87186; 99212; G0463

== ENCOUNTER 2019-09-29 19:59 | Emergency (ER) | payer BC ==
--- OUTSIDE RECORDS SUMMARY | 2019-09-29 20:26 | XMS REPORT | Summary of Care ---
:2000 Author Organization [facility] Address [address] [place] [address] Care Team Providers Name Role Phone Zoila Bell NP Primary Care Provider Reason for Visit Reason Comments Follow-up Encounter Details Date Type Department Care Team Description 09/18/2019 Office Visit [facility] Urology @ [place], Dysuria (Primary Dx); [address] [facility] MD Tania Urinary urgency [place], [place] [address] [facility] [address] [place], [place] [phone] [id number] [phone] Allergies Active Allergy Reactions Severity Noted Date Comments Lamotrigine Rash Low 05/18/2019 documented as of this encounter (statuses as of 09/23/2019) Medications Medication Sig Dispensed Refills Start Date End Date Status metformin Take 500 mg by 4 06/24/2019 Active (GLUCOPHAGE-XR) 500 MG mouth daily 24 hr tablet VICTOZA 18 MG/3ML Inject 1.8 mLs 06/12/2019 Active injection pen into the skin daily levothyroxine Take 75 mcg by 04/04/2019 Active (SYNTHROID, mouth every LEVOTHROID) 75 MCG other day tablet levothyroxine Take 50 mcg by 3 04/04/2019 Active (SYNTHROID, mouth every LEVOTHROID) 50 MCG other day tablet AVIANE 0.1-20 MG-MCG Take 1 tablet by 2 07/03/2019 Active per tablet mouth daily lithium carbonate 300 Take 300 mg by 4 06/06/2019 Active MG capsule mouth Two Times Daily QUEtiapine (SEROQUEL) Take 50 mg by 2 03/15/2019 Active 50 MG tablet mouth nightly clonazePAM (KLONOPIN) Take 1 mg by 0 04/18/2019 Active 1 MG tablet mouth as needed Meth-Hyo-M Bl-Na TAKE 1 CAPSULE 120 capsule 3 07/12/2019 Active Phos-Ph Markus (VILAMIT BY MOUTH MB) 118 MG CAPS NEEDED Additional information Patient not taking. Reported on 09/18/2019 8:23 AM metformin (GLUCOPHAGE) Take 1,000 mg by 0 09/18/2019 Discontinued ( Medication 1000 MG tablet mouth Two times Reconcilation) daily with meals documented as of this encounter (statuses as of 09/23/2019) Active Problems Problem Noted Date Dysuria 09/23/2019 Depression with anxiety 03/01/2013 documented as of this encounter (statuses as of 09/23/2019) Social History Tobacco Use Types Packs/Day Years Used Date Never Smoker Smokeless Tobacco: Never Used Sex Assigned at Date Recorded Not on file Job Start Date Occupation Industry Not on file Not on file Not on file Travel History Travel Start Travel End No recent travel history available. documented as of this encounter Last Filed Vital Signs Vital Sign Reading Time Taken Comments Blood Pressure 132/83 09/18/2019 8:19 AM EST Pulse 76 09/18/2019 8:19 AM EST Temperature - - Respiratory Rate - - Oxygen Saturation - - Inhaled Oxygen Concentration - - Weight 72.6 kg (160 lb) 09/18/2019 8:19 AM EST Height 154.9 cm (5' 1") 09/18/2019 8:19 AM EST Body Mass Index 30.23 09/18/2019 8:19 AM EST documented in this encounter Progress Notes Tania Gregg MD - 09/18/2019 8:15 AM EST CHIEF COMPLAINT: Bladder pain. HISTORY OF PRESENT ILLNESS: The patient is a pleasant but quite anxious 19-year-old female with a longstanding history of bladder pain. She has been having persistent discomfort in her bladder. When she last saw me about 2 months ago, she had imaging performed as well as urinalyses, all of which were negative for any renal or bladder source for her discomfort. She was started on Uribel which she felt was helpful for her symptoms but continued to have some discomfort. The patient comes now today for followup. She states that the Uribel is helpful. She is actually doing quite well and has no bladder pain today. She states that her symptoms lasted for about anothermonth after I saw her last time , but for the last month, she has been doing much better. She does believe that her symptoms are related to anxiety or stressful situations. A lot of the stressful moments has now resolved, and she believes that may also be related to why her pain is better. She follows with a therapist for her anxiety on a weekly basis as well. PAST MEDICAL HISTORY Reviewed and unchanged from prior PAST SURGICAL HISTORY Reviewed and unchanged from prior Medications: Current Outpatient Medications: AVIANE 0.1-20 MG-MCG per tablet, Take 1 tablet by mouth daily, Disp: , Rfl: 2 clonazePAM (KLONOPIN) 1 MG tablet, Take 1 mg by mouth as needed, Disp: , Rfl: 0 levothyroxine (SYNTHROID, LEVOTHROID) 50 MCG tablet, Take 50 mcg by mouth every other day, Disp: , Rfl: 3 levothyroxine (SYNTHROID, LEVOTHROID) 75 MCG tablet, Take 75 mcg by mouth every other day, Disp: , Rfl: 3 lithium carbonate 300 MG capsule, Take 300 mg by mouth Two Times Daily, Disp: , Rfl: 4 metformin (GLUCOPHAGE-XR) 500 MG 24 hr tablet, Take 500 mg by mouth daily, Disp: , Rfl: 4 QUEtiapine (SEROQUEL) 50 MG tablet, Take 50 mg by mouth nightly, Disp: , Rfl: 2 VICTOZA 18 MG/3ML injection pen, Inject 1.8 mLs into the skin daily, Disp: , Rfl: 4 Meth-Hyo-M Bl-Na Phos-Ph Markus (VILAMIT MB) 118 MG CAPS, TAKE 1 CAPSULE BY MOUTH NEEDED (Patient not taking: Reported on 09/18/2019), Disp: 120 capsule, Rfl: 3 Allergies: Lamotrigine Allergies Allergen Reactions Lamotrigine Rash Tobacco: Social History Tobacco Use Smoking Status Never Smoker Smokeless Tobacco Never Used Alcohol: has no history on file for alcohol. Drug: has no history on file for drug. PAST FAMILY Reviewed and unchanged from prior, noncontributory SOCIAL HISTORY Reviewed and unchanged from prior REVIEW OF SYSTEMS Remainder of Complete ROS negative except as noted in HPI EXAMINATION Visit Vitals BP 132/83 (BP Location: Left arm, Patient Position: Sitting, Cuff size: Regular) Pulse 76 Ht 1.549 m Wt 72.6 kg (160 lb) LMP 08/28/2019 BMI 30.23 kg/m ENT: MMM Gen: NAD Neuro: grossly intact Eyes: pupils are equal and round CV: no pallor, cyanosis Resp: no use of accessory resp muscles Abd: soft, NT/ND, no masses palpable Back: no CVA tenderness b/l Psych: normal mood Skin: Warm, dry CHART REVIEW: Urinalysis from 07/12/2019 demonstrates only trace leukocytes. Urine culture on 08/18/[address] scan, per report, on 07/06/2019 is also negative. ASSESSMENT AND PLAN: The patient is a pleasant 19-year-old female with a history of persistent bladder pain with negativeimaging and urinalyses. 1. We discussed the diagnosis of bladder pain/interstitial cystitis. We discussed treatment optionsincluding medications, behavioral modifications, pain management. The patient will continue with the Uribel for now. She would consider a bladder instillation if she has another flare in the future. 2. Potentially in the future, could also consider adding amitriptyline, hydroxyzine or Elmiron if the patient is interested. Thank you very much for allowing me to participate in this patient's care. Please do not hesitate to contact me with any questions. Tania Gregg MD Letter Of Credit Clerk, Department of Urology [facility] Main: documented in this encounter Plan of Treatment Date Type Specialty Care Team Description 12/25/2019 Office Visit Urology Tania Gregg MD [address] [place] [id number] [phone] Health Maintenance Due Date Last Done Comments MMR Vaccines (1 of 1 - Standard 1999 series) Varicella Vaccines (1 of 2 - 1999 2-dose childhood series) DTaP,Tdap,and Td Vaccines (1 - 2005 Tdap) HPV Vaccines (1 - Female 2-dose 2009 series) HIV Screening 2011 Chlamydia Screening 2014 Cervical Cancer Screening 3 years 2019 Influenza Vaccine 06/27/2019 Pneumococcal Vaccine: 65+ Years (1 2063 of 2 - PCV13) HIB Vaccines Aged Out No longer eligible based on patient's age to complete this topic Hepatitis A Vaccines Aged Out No longer eligible based on patient's age to complete this topic Hepatitis B Vaccines Aged Out No longer eligible based on patient's age to complete this topic IPV Vaccines Aged Out No longer eligible based on patient's age to complete this topic Pneumococcal Vaccine: Pediatrics Aged Out No longer eligible based on (0 to 5 Years) and At-Risk patient's age to complete this Patients (6 to 64 Years) topic documented as of this encounter Results Not on filedocumented in this encounter Visit Diagnoses Diagnosis Dysuria - Primary Urinary urgency Urgency of urination documented in this encounter
--- OUTSIDE RECORDS SUMMARY | 2019-09-29 20:26 | XMS REPORT | Continuity of Care Document ---
:2000 External Reference #:[id number] Author Name Zoila Bell N.P. Address [address] [place] [id number] Problems Active Problems Provider Date Hypothyroidism Zoila Bell N.Sukhwinder Onset: 11/27/2014 Depressive disorder Zoila Bell N.PMora Onset: 11/27/2014 Polycystic ovaries Zoila Bell N.PMora Onset: 08/26/2016 Anxiety Zoila Bell N.PMora Onset: 07/15/2017 Mood disorder Zoila Bell N.PMora Onset: 01/14/2018 Chronic interstitial cystitis Zoila Bell N.PMora Onset: 08/21/2019 Social History Type Date Description Comments Sex Unknown Tobacco Use Start: Unknown Patient has never smoked Recreational Drug Use Regularly uses Marijuana Smoking Status Reviewed: 02/22/19 Patient has never smoked Allergies, Adverse Reactions, Alerts Active Allergies Reaction Severity Comments Date Lamictal 01/06/2019 Inactive Allergies NKDA 12/05/2013 Medications Active Medications SIG Qnty Indications Ordering Provider Date Levonorgestrel/Ethiny take 1 tablet by 28tabs Zoila Bell, 2018 l Estradiol mouth once daily N.P. 0.1-20mg-mcg Tablets Victoza 1.8ml qd Unknown 18mg/3ML Solution Pen-Inject Synthroid 1 po qd Unknown 75mcg Tablets [place] Carbonate 1 po bid Unknown 300mg Capsules Quetiapine Fumarate 1 at hs, 1/2 in Unknown am 50mg Tablets Metformin HCL take one tablet Unknown 1000mg by mouth q day Tablets Uribel Unknown 118mg Capsules History Medications Phenazopyridine HCL 1 po tid 6tabs Zoila Bell, 06/19/2019 - 200mg N.P. 08/21/2019 Tablets Ciprofloxacin HCL 1 by mouth 14tabs RayZoila barahona, 06/16/2019 - 500mg Tablets twice a day x N.P. 08/21/2019 7 days Marlissa 1 by mouth 28tabs Zoila Bell, 06/06/2019 - 0.15-30mg-mcg Tablets every day N.P. 06/06/2019 Marlissa 1 by mouth 28tabs Zolia Bell, 06/06/2019 - 0.15-30mg-mcg Tablets every day N.P. 06/06/2019 Ciprofloxacin HCL 1 by mouth 10tabs Zoila Bell, 05/04/2019 - 500mg Tablets twice a day x N.P. 06/06/2019 5 days Medications Administered in Office Medication SIG Qnty Indications Ordering Provider Date PPD Nurses Schedule Arvind 09/08/2018 Injection Zoila Martinez, N.P. 09/06/2018 Injection PPD Zoila Bell, N.P. 03/19/2014 Injection Immunizations CPT Code Status Date Vaccine Lot # [id number] Given 08/01/2019 Influenza Vac, Quadrivalent, Split, 0.5mL Dosage, [id number] Im Use 88824 Given 08/15/2018 Influenza Vac, Quadrivalent, Split, 0.5mL Dosage, [id number] Im Use 15786 Given 06/28/2017 Influenza Vac, Quadrivalent, Split, 0.5mL Dosage, [id number] Im Use 32916 Given 05/21/2016 Menactra/Menveo Meningococcal Vaccine [id number] 00651 Given 06/20/2015 Influenza Vac, Quadrivalent, Split, 0.5mL Dosage, [id number] Im Use Q2038 Given 05/20/2011 Fluzone Trivalent Immunization 57813 Given 01/28/2011 HPV Vaccine (Gardasil) 3 Dose Schedule 12894 Given 09/08/2010 HPV Vaccine (Gardasil) 3 Dose Schedule 89198 Given 05/22/2010 HPV Vaccine (Gardasil) 3 Dose Schedule Q2038 Given 07/11/2009 Fluzone Trivalent Immunization 79258 Given 05/22/2009 Meningococcal Immunization 12794 Given 05/22/2009 Tdap (Adacel) Ages 7 And Above Only Q2038 Given 08/16/2008 Fluzone Trivalent Immunization 31938 Given 05/17/2008 Varicella (Chicken Pox) Immunization Q2038 Given 06/15/2007 Fluzone Trivalent Immunization 17715 Given 06/15/2007 Hepatitis A, Ped/Adolescent 2 Dose Schedule 77088 Given 05/07/2006 Hepatitis A, Ped/Adolescent 2 Dose Schedule 79375 Given 07/22/2004 Afluria Or Fluvirin Flu Vac Intramuscular 41863 Given 08/30/2003 Influenza Vaccine Preservative Free 6-35 Months Of Age 88241 Given 07/20/2003 Influenza Vaccine Preservative Free 6-35 Months Of Age 85004 Given 05/04/2003 MMR Virus Immunization 22413 Given 03/02/2003 IPV / Poliomyelitis Immunization 10877 Given 03/02/2003 DTP Immunization 28406 Given 09/12/1999 Hib HbOC Conjugate 4 Dose Schedule 60047 Given 09/12/1999 DTP Immunization 85328 Given 09/12/1999 Varicella (Chicken Pox) Immunization 15171 Given 04/24/1999 MMR Virus Immunization 93023 Given 1998 Hepatitis B Vac Ped/Adolescent 3 Dose Schedule 99522 Given 1998 IPV / Poliomyelitis Immunization 45348 Given 1998 DTP Immunization 93107 Given 1998 Hib HbOC Conjugate 4 Dose Schedule 05239 Given 1998 Hepatitis B Vac Ped/Adolescent 3 Dose Schedule 50629 Given 1998 DTP Immunization 85064 Given 1998 Hib HbOC Conjugate 4 Dose Schedule 74075 Given 1998 IPV / Poliomyelitis Immunization 91359 Given 1998 Hepatitis B Vac Ped/Adolescent 3 Dose Schedule 95211 Given 1998 IPV / Poliomyelitis Immunization 94087 Given 1998 DTP Immunization 39458 Given 1998 Hib HbOC Conjugate 4 Dose Schedule 89499 Refused 06/16/2019 Influenza Vac, Quadrivalent, Split, 0.5mL Dosage, Im Use 29746 Refused 08/04/2018 Influenza Vac, Quadrivalent, Split, 0.5mL Dosage, Im Use 46020 Refused 10/15/2017 Influenza Vac, Quadrivalent, Split, 0.5mL Dosage, Im Use Vital Signs Date Vital Result Comment 09/11/2019 10:32am Body Temperature 98.2 F Weight 160.00 lb Heart Rate 100 /min BP Systolic 120 mmHg BP Diastolic 64 mmHg O2 % BldC Oximetry 99 % 08/21/2019 1:46pm Body Temperature 98.1 F Weight 158.00 lb Heart Rate 66 /min BP Systolic 112 mmHg BP Diastolic 80 mmHg O2 % BldC Oximetry 99 % Results Test Acquired Facility Test Result H/L Range Note Date Laboratory 06/16/2019 [facility] Microbiology 1 test finding res <SEE NOTE> Laboratory 05/12/2019 [facility] Salicylate < 1.7 mg/dL Low 2.8-20.0 2, 3 test finding (315)- - CBS 05/12/2019 [facility] White Blood 9.2 K/uL Normal 3.1-10.7 W/Automated (315)- - Count Diff Red Blood Count [...] 40.4-72.8 Lymph % 32.5 % Normal 20.0-42.0 [place] % 6.9 % Normal 4.3-13.2 Eo% 1.2 % Normal 0.0-6.6 Bas% 0.5 % Normal 0.0-1.1 Immature Grans 0.2 % Normal 0.0-5.0 NRBC % 0.0 /100WBC < 10/ 100 WBC Neut# 5.37 K/uL Normal 1.8-7.0 Lymph # 2.98 K/uL Normal 1.0-4.0 [place] # 0.63 K/uL Normal 0.3-0.9 Eos # 0.11 K/uL Normal 0.0-0.5 Baso # 0.05 K/uL Normal 0.0-0.1 Immature Grans Absolute 0.02 K/uL NRBC # 0.00 K/uL Urinalysis With 05/12/2019 [facility] Urine Color DK YELLOW Yellow Microscopic (315)- - Urine Clarity SL CLOUDY Clear Urine Glucose - Dipstick NEGATIVE mg/dL Negative Urine Bilirubin - Dipstick SMALL Abnormal Negative Urine Ketone 15 mg/dL High Negative Urine Specific [place] >= 1.030 Normal 1.010-1.030 Urine Blood SMALL [...] <SEE NOTE> 4 Drugs Of Abuse-Urine 05/12/2019 [facility] Amphetamines ( Urine) Negative Screen 7 (315)- - Barbiturates (Urine) Negative Benzodiazepines (Urine) POSITIVE High Cannabinoids (Urine) POSITIVE Abnormal Cocaine Metabolite (Urine) Negative Methadone (Urine) Negative Opiates (Urine) Negative Urine Cutoffs * 5 Laboratory test 05/04/2019 [facility] Microbiology res Abnormal 6 finding <SEE NOTE> 1 Microbiology results SOURCE [...] TOBRAMYCIN <=4 S TRIMETHOPRIM/SULFAMETHOXAZ <=2/38 S S=Sensitive;I=Indeterminate;R=Resistant Procedures Date Code Description Status 06/16/2019 14022 Destruction Benign Lesions Other Than Skin Tags Up To 14 Completed Lesions 06/06/2019 45909 Destruction Benign Lesions Other Than Skin Tags Up To 14 Completed Lesions Medical Devices Description No Information Available Encounters Type Date Location Provider Dx Diagnosis Office Visit 06/19/2019 3:45p Zoila Cho, N.P. R30.0 Dysuria Z87.440 Personal history of urinary (tract) infections Office Visit 06/16/2019 9:00a Zoila Cho, N.P. R30.0 Dysuria B07.9 Viral wart, unspecified Z28.21 Immunization not carried out because of patient refusal Z87.440 Personal history of urinary (tract) infections Office Visit 05/04/2019 1:45p Zoila Cho, R30.0 Dysuria N.P. Office Visit 04/05/2019 9:30a Zoila Cho, F43.0 Acute stress reaction N.P. Office Visit 03/14/2019 9:30a Zoila Cho, F41.1 Generalized anxiety N.P. disorder F39 Unspecified mood [affective] disorder Assessments Date Code Description Provider 09/11/2019 F41.1 Generalized anxiety disorder Zoila Bell, N.P. 09/11/2019 F39 Unspecified mood [affective] disorder Zoila Bell, N.P. 09/11/2019 R30.0 Dysuria Zoila Bell, N.P. 08/21/2019 F39 Unspecified mood [affective] disorder Zoila Bell, N.P. 08/21/2019 F41.1 Generalized anxiety disorder Zoila Bell, N.P. 08/21/2019 R30.0 Dysuria Zoila Bell, N.P. 08/01/2019 Z23 Encounter for immunization Zoila Bell, N.P. 06/19/2019 R30.0 Dysuria Zoila Bell, N.P. 06/19/2019 Z87.440 Personal history of urinary (tract) Zoila Bell, N.P. infections 06/16/2019 R30.0 Dysuria Zoila Bell, N.P. 06/16/2019 B07.9 Viral wart, unspecified oZila Bell, N.P. 06/16/2019 Z28.21 Immunization not carried out because of Zoila Bell, N.P. patient refusal 06/16/2019 Z87.440 Personal history of urinary (tract) Zoila Bell, N.P. infections 06/16/2019 R30.0 Dysuria [facility] 06/16/2019 R82.90 Unspecified abnormal findings in urine [facility] 06/06/2019 B07.9 Viral wart, unspecified Zoila Bell, N.P. 05/04/2019 R30.0 Dysuria Zoila Bell, N.P. 05/04/2019 R82.90 Unspecified abnormal findings in urine [facility] 05/04/2019 R30.0 Dysuria [facility] 04/05/2019 F43.0 Acute stress reaction Zoila Bell, N.P. 03/14/2019 F41.1 Generalized anxiety disorder Zoila Bell, N.P. 03/14/2019 F39 Unspecified mood [affective] disorder Zoila Bell, N.P. Plan of Treatment Future Appointment(s):10/16/2019 10:30 am - Zoila Bell N.P. at [id number] - Zoila Bell N.P.F41.1 Generalized anxiety disorderComments: continue counselingtake meds as rx'd and recheck 4-6 weeks and always prnF39 Unspecified mood [affective] disorderComments:stable on today's examcont current meds, f/u Ghada Ascencio as planned report escalating depression/anxiety ASAPR30.0 DysuriaComments:stable on uribel at this time f/u urology as scheduled drink plenty of fluids Functional Status Description No Information Available Mental Status Description No Information Available Referrals Refer to Reason for Referral Status Appt Date Brunilda Gutierrez NP recurrent dysuria Closed 07/12/2019 [address] [phone]
--- OUTSIDE RECORDS SUMMARY | 2019-09-29 20:26 | XMS REPORT | Continuity of Care Document ---
:1998 External Reference #:[id number] Author Name Zoila Bell N.P. Address [address] [place] [id number] Problems Active Problems Provider Date Hypothyroidism Zoila [...] Synthroid 1 po qd Unknown 75mcg Tablets [place] Carbonate 1 po bid Unknown 300mg Capsules [...] N.P. 06/06/2019 Marlissa 1 by mouth 28tabs Zoila Bell, [...] CPT Code Status Date Vaccine Lot # [id number] Given 08/01/2019 Influenza Vac, Quadrivalent, Split, 0.5mL Dosage, [id number] Im Use 88364 Given 08/15/2018 Influenza Vac, Quadrivalent, Split, 0.5mL Dosage, [id number] Im Use 62509 Given 06/28/2017 Influenza Vac, Quadrivalent, Split, 0.5mL Dosage, [id number] Im Use 49201 Given 05/21/2016 Menactra/Menveo Meningococcal Vaccine [id number] 77756 Given 06/20/2015 Influenza Vac, Quadrivalent, Split, 0.5mL Dosage, [id number] Im Use Q2038 Given 05/20/2011 Fluzone Trivalent Immunization 80826 Given 01/28/2011 HPV Vaccine (Gardasil) 3 Dose Schedule 15757 Given 09/08/2010 HPV Vaccine (Gardasil) 3 Dose Schedule 12007 Given 05/22/2010 HPV Vaccine (Gardasil) 3 Dose Schedule Q2038 Given 07/11/2009 Fluzone Trivalent Immunization 32894 Given 05/22/2009 Meningococcal Immunization 93844 Given 05/22/2009 Tdap (Adacel) Ages 7 And Above Only Q2038 Given 08/16/2008 Fluzone Trivalent Immunization 16830 Given 05/17/2008 Varicella (Chicken Pox) Immunization Q2038 Given 06/15/2007 Fluzone Trivalent Immunization 92191 Given 06/15/2007 Hepatitis A, Ped/Adolescent 2 Dose Schedule 90982 Given 05/07/2006 Hepatitis A, Ped/Adolescent 2 Dose Schedule 49200 Given 07/22/2004 Afluria Or Fluvirin Flu Vac Intramuscular 87073 Given 08/30/2003 Influenza Vaccine Preservative Free 6-35 Months Of Age 61126 Given 07/20/2003 Influenza Vaccine Preservative Free 6-35 Months Of Age 26828 Given 05/04/2003 MMR Virus Immunization 50657 Given 03/02/2003 IPV / Poliomyelitis Immunization 17462 Given 03/02/2003 DTP Immunization 71025 Given 09/12/1999 Hib HbOC Conjugate 4 Dose Schedule 10326 Given 09/12/1999 DTP Immunization 03425 Given 09/12/1999 Varicella (Chicken Pox) Immunization 65069 Given 04/24/1999 MMR Virus Immunization 49297 Given 1998 Hepatitis B Vac Ped/Adolescent 3 Dose Schedule 17106 Given 1998 IPV / Poliomyelitis Immunization 17500 Given 1998 DTP Immunization 83441 Given 1998 Hib HbOC Conjugate 4 Dose Schedule 81022 Given 1998 Hepatitis B Vac Ped/Adolescent 3 Dose Schedule 10224 Given 1998 DTP Immunization 70054 Given 1998 Hib HbOC Conjugate 4 Dose Schedule 48473 Given 1998 IPV / Poliomyelitis Immunization 79267 Given 1998 Hepatitis B Vac Ped/Adolescent 3 Dose Schedule 86427 Given 1998 IPV / Poliomyelitis Immunization 24360 Given 1998 DTP Immunization 78989 Given 1998 Hib HbOC Conjugate 4 Dose Schedule 35987 Refused 06/16/2019 Influenza Vac, Quadrivalent, Split, 0.5mL Dosage, Im Use 56825 Refused 08/04/2018 Influenza Vac, Quadrivalent, Split, 0.5mL Dosage, Im Use 05379 Refused 10/15/2017 Influenza Vac, Quadrivalent, Split, 0.5mL Dosage, Im Use Vital Signs Date Vital Result Comment 08/21/2019 1:46pm Body Temperature 98.1 F Weight 158.00 lb Heart Rate 66 /min BP Systolic 112 mmHg BP Diastolic 80 mmHg O2 % BldC Oximetry 99 % 06/19/2019 3:41pm Body Temperature 98.1 F Weight 160.38 lb Heart Rate 86 /min BP Systolic 98 mmHg BP Diastolic 62 mmHg O2 % BldC Oximetry 98 % Results Test Acquired Facility Test Result H/L Range Note Date Laboratory 06/16/2019 [facility] Microbiology 1 test finding res <SEE NOTE> Laboratory 05/12/2019 [facility] Salicylate < 1.7 mg/dL Low 2.8-20.0 2, 3 test finding (315)- - CBS 05/12/2019 [facility] White Blood 9.2 K/uL Normal [...] 40.4-72.8 Lymph % 32.5 % Normal 20.0-42.0 Carbon % 6.9 % Normal 4.3-13.2 Eo% 1.2 % Normal 0.0-6.6 Bas% 0.5 % Normal 0.0-1.1 Immature Grans 0.2 % Normal 0.0-5.0 NRBC % 0.0 /100WBC < 10/ 100 WBC Neut# 5.37 K/uL Normal 1.8-7.0 Lymph # 2.98 K/uL Normal 1.0-4.0 Carbon # 0.63 K/uL Normal 0.3-0.9 Eos # 0.11 K/uL Normal 0.0-0.5 Baso # 0.05 K/uL Normal 0.0-0.1 Immature Grans Absolute 0.02 K/uL NRBC # 0.00 K/uL Urinalysis With 05/12/2019 [facility] Urine Color DK YELLOW Yellow Microscopic (315)- - Urine Clarity SL CLOUDY Clear Urine Glucose - Dipstick NEGATIVE mg/dL Negative Urine Bilirubin - Dipstick SMALL Abnormal Negative Urine Ketone 15 mg/dL High Negative Urine Specific [place] >= 1.030 Normal 1.010-1.030 Urine Blood SMALL [...] <SEE NOTE> 4 Drugs Of Abuse-Urine 05/12/2019 [facility] Amphetamines ( Urine) Negative Screen [...] S S=Sensitive;I=Indeterminate;R=Resistant Procedures Date Code Description Status 08/21/2019 41546 Admin Patient Focused Health Risk Assessment Instrument Completed 06/16/2019 82810 Destruction Benign Lesions Other Than Skin Tags Up To 14 Completed Lesions 06/06/2019 52310 Destruction Benign Lesions Other Than Skin Tags [...] mood [affective] disorder Office Visit 03/07/2019 10:30a [place] Zoila Bell, F39 Unspecified mood N.P. [affective] disorder F41.1 Generalized anxiety disorder Assessments Date Code Description Provider 08/21/2019 F39 Unspecified mood [affective] disorder Zoila [...] Zoila Bell, N.P. infections 06/16/2019 R30.0 Dysuria [facility] 06/16/2019 [...] mood [affective] disorder Zoila Bell, N.P. 03/07/2019 F39 Unspecified mood [affective] disorder Zoila Bell, N.PMora 03/07/2019 F41.1 Generalized anxiety disorder Zoila Bell N.Sukhwinder Plan of Treatment Future Appointment(s):09/11/2019 10:30 am - Zoila Bell NJoyce. at [id number] - Zoila Bell [id number] Unspecified mood [affective] disorderComments:cont current meds, f/u Ghada Ascencio as planned report escalating depression/anxiety ASAPF41.1 Generalized anxiety disorderComments:seems stable on exam cont meds and nlyfmhmdfpI23.0 DysuriaComments:f/u urology as scheduled drink plenty of fluidsAllNew Medication:Levonorgestrel/Ethinyl Estradiol 0.1-20 mg-mcg - take 1 tablet by mouth once daily Functional Status Description No Information Available Mental Status Description No Information Available Referrals Refer to Dr Reason for Referral Status Appt Date Brunilda Gutierrez NP recurrent dysuria Closed 07/12/[address] [place] [phone] [phone]
[2019-09-29 20:40] VITALS: BP 137/88
[2019-09-29] MEDS ORDERED: Cephalexin CAP* 500 MG PO ONE ×2 (21:18→21:19)
--- NOTE | 2019-09-29 21:19 | UC ---
Complaint Female HPI - HPI Summary HPI Summary: 19-year-old woman comes in with a chief complaint of UTI symptoms. She's got burning with urination and urinary frequency and urgency and bladder spasm. Started several hours ago. Patient's had recurrent urinary tract infections and does see a urologist at [facility] for this. No fevers no flank pain. - History Of Current Complaint Chief Complaint: UCGU Stated Complaint: URINARY Time Seen by Provider: 09/29/19 20:47 Hx Last Menstrual Period: 09/26/19 Pain Intensity: 10 - Allergies/Home Medications Allergies/Adverse Reactions: Allergies Allergy/AdvReac Type Severity Reaction Status Date / Time lamotrigine [From Lamictal] Allergy Rash Verified 08/10/19 17:11 PMH/Surg Hx/FS Hx/Imm Hx Previously Healthy: Yes - RECURRENT UTIS - Surgical History Surgical History: None - Family History Known Family History: Negative: Diabetes, Blood Disorder - Social History Alcohol Use: Rare Substance Use Type: None Substance Use Comment - Amount & Last Used: nightly Smoking Status (MU): Former Smoker Type: eCigarettes Have You Smoked in the Last Year: Yes When Did the Patient Quit Smoking/Using Tobacco: April 2019 - Immunization History Most Recent Influenza Vaccination: 07/2013 Most Recent Pneumonia Vaccination: never Vaccination Up to Date: Yes Review of Systems All Other Systems Reviewed And Are Negative: Yes Constitutional: Positive: Negative Skin: Positive: Negative Eyes: Positive: Negative ENT: Positive: Negative Respiratory: Positive: Negative Cardiovascular: Positive: Negative Gastrointestinal: Positive: Other - SEE HPI Genitourinary: Positive: Dysuria, Frequency, Urgency Motor: Positive: Negative Neurovascular: Positive: Negative Musculoskeletal: Positive: Negative Neurological: Positive: Negative Psychological: Positive: Negative Is Patient Immunocompromised?: No Physical Exam Triage Information Reviewed: Yes Appearance: Well-Appearing, No Pain Distress, Well-Nourished Vital Signs: Initial Vital Signs Temp 98.3 F 09/29/19 20:35 Pulse 89 09/29/19 20:35 Resp 16 09/29/19 20:35 BP 137/88 09/29/19 20:35 Pulse Ox 100 09/29/19 20:35 Vital Signs Reviewed: Yes Eye Exam: Normal Eyes: Positive: Conjunctiva Clear Neck: Positive: Supple Respiratory: Positive: Lungs clear, Normal breath sounds, No respiratory distress Cardiovascular: Positive: RRR Abdomen Description: Positive: Other: - Mild suprapubic tenderness. Negative: CVA Tenderness (R), CVA Tenderness (L) Musculoskeletal: Positive: Strength Intact, ROM Intact Neurological: Positive: Alert, Muscle Tone Normal Psychological: Positive: Age Appropriate Behavior Skin Exam: Normal Complaint Female Dx - Differential Dx/Diagnosis Provider Diagnosis: UTI (urinary tract infection) Discharge ED - Sign-Out/Discharge Documenting (check all that apply): Patient Departure All imaging exams completed and their final reports reviewed: No Studies - Discharge Plan Condition: Stable Disposition: HOME Prescriptions: Cephalexin CAP* [Keflex CAP*] 500 mg PO TID #20 cap Patient Education Materials: Urinary Tract Infection in Women (ED) Referrals: Zoila Bell NP [Primary Care Provider] - Additional Instructions: FOLLOW UP WITH YOUR UROLOGIST. GET REEVALUATED SOONER IF NOT IMPROVING OR WORSE OR ANY QUESTIONS OR CONCERNS. - Billing Disposition and Condition Condition: STABLE Disposition: Home
== END 2019-09-29 21:33 | disposition home or self-care (01) ==
LOC: UCCORT 19:59
DX: N39.0 Urinary tract infection, site not specified (principal); Z87.891 Personal history of nicotine dependence; Z88.8 Allergy status to other drugs, medicaments and biological substances
CPT/HCPCS: 81003; 84702; 87077; 87086; 87186; 99212; A9270-GY; G0463